=== PATIENT | female | born 1950 | race Caucasian/White ===

== ENCOUNTER 2017-07-22 08:25 | Emergency (ER) | payer BC ==
[2017-07-22 08:50] VITALS: BP 150/82
--- NOTE | 2017-07-22 09:13 | UC ---
Respiratory Complaint HPI - HPI Summary HPI Summary: c/o cough for the past 3 days, denies fever, running nose, sputum production or prodrome. States she has been on Breo and Spiriva recently, Hx of asthma on inhalers since 1991 after pneumonia, since then has recurrent bronchitis. UTD on vaccinations, NKDA. Last episode of bronchitis was 2 years ago - History of Current Complaint Chief Complaint: UCRespiratory Stated Complaint: CONGESTION ASTHMA Time Seen by Provider: 07/22/17 08:53 Hx Obtained From: Patient ?: No Onset/Duration: Sudden Onset, Lasting Days Timing: Constant Severity Initially: Moderate Severity Currently: Moderate Character: Cough: Nonproductive Aggravating Factors: Nothing Alleviating Factors: Nothing Associated Signs And Symptoms: Positive: Sinus Discomfort - Risk Factors Pulmonary Embolism Risk Factors: Negative Cardiac Risk Factors: Negative Pseudomonas Risk Factors: Negative Tuberculosis Risk Factors: Negative - Allergies/Home Medications Allergies/Adverse Reactions: Allergies Allergy/AdvReac Type Severity Reaction Status Date / Time No Known Allergies Allergy Verified 07/22/17 08:34 Home Medications: Home Medications Fluticasone Furoate-Vilanterol [Breo Ellipta 200-25 Mcg/INH] 1 inh INH DAILY [History Confirmed 07/22/17] Metformin HCl [Glucophage Xr] 1 tab PO QPM 07/22/17 [History Confirmed 07/22/17] Rabeprazole Sodium 1 tab PO DAILY 07/22/17 [History Confirmed 07/22/17] Spiriva Inhaler DEVICE* [Tiotropium Inhaler DEVICE*] 2 inhaler INH DAILY [History Confirmed 07/22/17] PMH/Surg Hx/FS Hx/Imm Hx Other History Of: Negative For: Anticoagulant Therapy - Surgical History Surgical History: Yes Surgery Procedure, Year, and Place: right knee replace - 2010. appe, tonsillectomy, tubal ligation. cataracts bilat, several arthroscopic surgeries of right knee prior to replacement - Family History Known Family History: Positive: Cardiac Disease - Social History Alcohol Use: None Substance Use Type: None Smoking Status (MU): Never Smoked Tobacco Review of Systems Respiratory: Cough All Other Systems Reviewed And Are Negative: Yes Physical Exam Triage Information Reviewed: Yes Appearance: Well-Appearing Vital Signs: Initial Vital Signs Temp 98.4 F 07/22/17 08:45 Pulse 81 07/22/17 08:45 Resp 16 07/22/17 08:45 BP 150/82 07/22/17 08:45 Pulse Ox 97 07/22/17 08:45 Vital Signs Reviewed: Yes Eye Exam: Normal ENT Exam: Normal Dental Exam: Normal Neck exam: Normal Respiratory Exam: Normal Cardiovascular Exam: Normal UC Diagnostic Evaluation - Laboratory O2 Sat by Pulse Oximetry: 97 Respiratory Course/Dx - Course Course Of Treatment: Onset of cough 3 days ago with history of recurrent bronchitis. Start biaxin 500mg po bid for 7 days, PO fluids, probiotics, continue inhalers. - Differential Dx/Diagnosis Provider Diagnoses: Bronchitis Discharge - Discharge Plan Condition: Stable Disposition: HOME
== END 2017-07-22 09:18 | disposition home or self-care (01) ==
LOC: UCEAST 08:25
DX: J40 Bronchitis, not specified as acute or chronic (principal); Z96.651 Presence of right artificial knee joint
CPT/HCPCS: 99212; G0463

== ENCOUNTER 2017-11-14 08:42 | Emergency (ER) | payer BC ==
[2017-11-14 09:07] VITALS: BP 147/79
--- NOTE | 2017-11-14 09:59 | UC ---
Hand/Wrist HPI - HPI Summary HPI Summary: puppy ruthann left pinky 4-5 weeks ago has continued pain and swelling in PIP - History Of Current Complaint Hx Obtained From: Patient ?: No Mechanism Of Injury: ruthann 5th left finger Onset/Duration: Sudden Onset, Lasting Weeks - 4-5 weeks, Still Present Severity Initially: Moderate Severity Currently: Moderate Pain Intensity: 6 Pain Scale Used: 0-10 Numeric Character Of Pain: Throbbing, Stiffness Aggravating Factor(s): Movement Alleviating Factor(s): Nothing Associated Signs And Symptoms: Positive: Swelling Related History: Dominant Hand Right <Rosi Tidwell - Last Filed: 11/14/17 10:50> <Sarah Blair - Last Filed: 11/14/17 14:17> - History Of Current Complaint Chief Complaint: UCUpperExtremity Stated Complaint: FINGER INJURY Time Seen by Provider: 11/14/17 09:57 - Allergies/Home Medications Allergies/Adverse Reactions: Allergies Allergy/AdvReac Type Severity Reaction Status Date / Time No Known Allergies Allergy Verified 11/01/17 07:25 Home Medications: Home Medications Mometasone/Formoter 200/5 MDI* [Dulera 200/5 MDI*] 11/14/17 [History] Montelukast Sodium TAB* [Singulair 10 MG TAB*] 10 mg PO DAILY 11/14/17 [History Confirmed 11/14/17] Triamcinolone NASAL SPRAY* [Nasacort Aq Nasal [place]*] 1 spray INH DAILY [History Confirmed 11/14/17] PMH/Surg Hx/FS Hx/Imm Hx Previously Healthy: No Endocrine History: Diabetes Cardiovascular History: Hypertension Respiratory History: Asthma Neurological History: Migraine Other History Of: Negative For: Anticoagulant Therapy - Surgical History Surgical History: Yes Surgery Procedure, Year, and Place: right knee replace - 2010. appe, tonsillectomy, tubal ligation. cataracts bilat, several arthroscopic surgeries of right knee prior to replacement - Family History Known Family History: Positive: Cardiac Disease - Social History Occupation: Retired Lives: With Family Alcohol Use: None Substance Use Type: None Smoking Status (MU): Never Smoked Tobacco <Rosi Tidwell - Last Filed: 11/14/17 10:50> Review of Systems Constitutional: Negative Skin: Negative Eyes: Negative ENT: Negative Respiratory: Negative Cardiovascular: Negative Gastrointestinal: Negative Genitourinary: Negative Motor: Negative Neurovascular: Negative Musculoskeletal: Arthralgia - mid left 5th finger, Edema - mid left 5th finger Neurological: Negative Psychological: Negative Is Patient Immunocompromised?: No All Other Systems Reviewed And Are Negative: Yes <Rosi Tidwell - Last Filed: 11/14/17 10:50> Physical Exam Triage Information Reviewed: Yes Appearance: Well-Appearing, No Pain Distress, Well-Nourished Vital Signs: Initial Vital Signs Temp 97.8 F 11/14/17 09:01 Pulse 88 11/14/17 09:01 Resp 16 11/14/17 09:01 BP 147/79 11/14/17 09:01 Pulse Ox 98 11/14/17 09:01 Vital Signs Reviewed: Yes Eye Exam: Normal Eyes: Positive: Conjunctiva Clear ENT Exam: Normal ENT: Positive: Normal ENT inspection, Hearing grossly normal. Negative: Nasal congestion, Muffled voice, Hoarse voice, Dental tenderness, Sinus tenderness Dental Exam: Normal Neck exam: Normal Neck: Positive: Supple, Nontender Respiratory Exam: Normal Respiratory: Positive: No respiratory distress, No accessory muscle use Cardiovascular Exam: Normal Cardiovascular: Positive: Pulses Normal, Brisk Capillary Refill Musculoskeletal Exam: Other Musculoskeletal: Positive: Strength Intact, ROM Intact, Edema @ - left 5th finger Neurological Exam: Normal Neurological: Positive: Alert, Muscle Tone Normal Psychological Exam: Normal Skin Exam: Normal <Rosi Tidwell - Last Filed: 11/14/17 10:50> Vital Signs: Initial Vital Signs Temp 97.8 F 11/14/17 09:01 Pulse 88 11/14/17 09:01 Resp 16 11/14/17 09:01 BP 147/79 11/14/17 09:01 Pulse Ox 98 11/14/17 09:01 <Sarah Blair - Last Filed: 11/14/17 14:17> Diagnostics - Radiology No standard instances Xray Interpretation: No Acute Changes Radiology Interpretation Completed By: ED Physician, Radiologist <Rosi Tidwell - Last Filed: 11/14/17 10:50> Re-Evaluation - Re-Evaluation First Eval Change: Unchanged <Rosi Tidwell - Last Filed: 11/14/17 10:50> Hand/Wrist Course/Dx - Course Course Of Treatment: tyelnol ibuprofen finger splint, follow with bp and finger with pcp - Differential Dx/Diagnosis Provider Diagnoses: hypertension in poor control, left 5th finger sprain <Rosi Tidwell - Last Filed: 11/14/17 10:50> Discharge <Rosi Tidwell - Last Filed: 11/14/17 10:50> <Sarah Blair - Last Filed: 11/14/17 14:17> - Discharge Plan Condition: Stable Disposition: HOME Patient Education Materials: Acetaminophen (By mouth), Ibuprofen (By mouth), Jammed Finger (ED), Hypertension (ED) Referrals: Lokesh Liu MD [Primary Care Provider] - 1 Week Attestation Statement User Type: Provider - I was available for consult. This patient was seen by the CHRIS. The patient was not presented to, seen by, or examined by me. Daniel <Sarah Blair - Last Filed: 11/14/17 14:17>
--- NOTE | 2017-11-14 10:35 | RAD ---
Indication: Left hand injury. 2 views of left hand demonstrates no definite fracture or dislocation. No other bone or joint abnormality is noted. IMPRESSION: No fracture of the left hand is noted.
== END 2017-11-14 10:52 | disposition home or self-care (01) ==
LOC: UCEAST 08:42
DX: S63.617A Unspecified sprain of left little finger, initial encounter (principal); W23.0XXA Caught, crushed, jammed, or pinched between moving objects, initial encounter; Y93.9 Activity, unspecified; Y92.9 Unspecified place or not applicable; I10 Essential (primary) hypertension; E11.9 Type 2 diabetes mellitus without complications; J45.909 Unspecified asthma, uncomplicated; G43.909 Migraine, unspecified, not intractable, without status migrainosus; Z96.651 Presence of right artificial knee joint; Z98.42 Cataract extraction status, left eye; Z98.41 Cataract extraction status, right eye
CPT/HCPCS: 99212; G0463

== ENCOUNTER 2018-01-28 16:11 | Observation (INO) | payer MEDICARE, BC ==
[2018-01-28] MEDS ORDERED: Ondansetron ODT TAB* 4 MG PO ONE (17:12)
[2018-01-28] MEDS ORDERED: Morphine VIAL* 4 MG/ML VIAL (1 ml vial) IV ONE ×2 (17:13→18:40)
--- NOTE | 2018-01-28 17:36 | ED ---
Lower Extremity - HPI Summary HPI Summary: Patient is a 67-year-old female who presents emergency department for a right lower leg injury that occurred just prior to arrival. Patient states she has 2 large dogs in the ran into the side of her right mid leg and she fell to the ground. No head injury or loss of consciousness. Is not anticoagulated. Pain is located mostly to right knee. History of the replacement in 2010. Denies numbness, tingling or weakness. No other injuries were sustained. Symptoms are moderate in severity. Walking and touching leg makes symptoms worse. Nothing makes symptoms better. - History of Current Complaint Chief Complaint: EDExtremityLower Stated Complaint: RT LEG INJURY Time Seen by Provider: 01/28/18 17:02 Hx Obtained From: Patient Pain Intensity: 7 - Allergies/Home Medications Allergies/Adverse Reactions: Allergies Allergy/AdvReac Type Severity Reaction Status Date / Time No Known Allergies Allergy Verified 11/01/17 07:25 Home Medications: Home Medications Calcium Carbonate/Vitamin D3 [Calcium 600-Vit D3 800 Caplet] 1 each PO BID 01/28 [History Confirmed 01/28/18] Diclofenac Sodium EC TAB* [Voltaren EC TAB*] 50 mg PO TID 01/28/18 [History Confirmed 01/28/18] Glucosamine CAP (NF) 1,000 cap PO BID 01/28/18 [History Confirmed 01/28/18] Lovastatin(NF) [Mevacor(NF)] 20 mg PO QPM 01/28/18 [History Confirmed 01/28/18] Mometasone/Formoter 200/5 MDI* [Dulera 200/5 MDI*] 2 puff INH BID 01/28/18 [ History Confirmed 01/28/18] Montelukast Sodium TAB* [Singulair TAB*] 10 mg PO QPM 01/28/18 [History Confirmed 01/28/18] NIFEdipine ER TAB* [Procardia Xl TAB*] 60 mg PO QPM 01/28/18 [History Confirmed 01/28/18] Rabeprazole (NF) [Aciphex (NF)] 20 mg PO QAM 01/28/18 [History Confirmed ] Triamcinolone NASAL SPRAY* [Nasacort AQ Nasal [place]*] 2 puff BOTH NARES QAM 04/10 [History Confirmed 01/28/18] metFORMIN* [Glucophage 500 MG TAB *] 750 mg PO QPM 01/28/18 [History Confirmed 01/28/18] PMH/Surg Hx/FS Hx/Imm Hx Previously Healthy: Yes Endocrine/Hematology History: Reports: Hx Diabetes Denies: Hx Anticoagulant Therapy, Hx Thyroid Disease Cardiovascular History: Denies: Hx Hypertension, Hx Pacemaker/ICD Respiratory History: Reports: Hx Asthma Denies: Hx Chronic Obstructive Pulmonary Disease (COPD) History: Denies: Hx Renal Disease Musculoskeletal History: Denies: Hx Osteoporosis Neurological History: Denies: Hx Dementia, Hx Seizures Psychiatric History: Denies: Hx Substance Abuse - Cancer History Hx Chemotherapy: No Hx Radiation Therapy: No - Surgical History Surgery Procedure, Year, and Place: right knee replace - 2010. appe, tonsillectomy, tubal ligation. cataracts bilat, several arthroscopic surgeries of right knee prior to replacement Infectious Disease History: No Infectious Disease History: Denies: Hx Clostridium Difficile, Hx Hepatitis, Hx Human Immunodeficiency Virus (HIV), Hx of Known/Suspected MRSA, Hx Shingles, Hx Tuberculosis, Hx Known/ Suspected VRE, Hx Known/Suspected VRSA, History Other Infectious Disease, Traveled Outside the [place] in Last 30 Days - Family History Known Family History: Positive: Cardiac Disease - Social History Occupation: Retired Lives: With Family Alcohol Use: None Substance Use Type: Reports: None Hx Tobacco Use: No Smoking Status (MU): Never Smoked Tobacco Review of Systems Positive: Other - Right knee pain and swelling Negative: Weakness, Paresthesia, Numbness Psychological: Normal All Other Systems Reviewed And Are Negative: Yes Physical Exam Triage Information Reviewed: Yes Vital Signs On Initial Exam: Initial Vitals Temp Pulse Resp BP Pulse Ox 97.6 F 88 14 145/90 100 01/28/18 16:14 01/28/18 16:14 01/28/18 16:14 01/28/18 16:14 01/28/18 16:14 Vital Signs Reviewed: Yes Appearance: Positive: Pain Distress - Pt. is lying on gurney in no acute distress. present. Skin: Positive: Warm, Dry Head/Face: Positive: Normal Head/Face Inspection Eyes: Positive: Normal, JAYCOB Neck: Positive: Supple Musculoskeletal: Positive: Other - Marked edema noted to the right knee with significant pain on palpation. Exam is limited secondary to edema and pain. Good palpable pedal pulse. No proximal or distal injuries. No wounds. Neurological: Positive: Normal, CN Intact II-III Diagnostics - Vital Signs Vital Signs Temp Pulse Resp BP Pulse Ox 01/28/18 17:28 16 01/28/18 16:14 97.6 F 88 14 145/90 100 - Laboratory Result Diagrams: 01/28/18 20:59 01/28/18 20:59 Lab Statement: Any lab studies that have been ordered have been reviewed, and results considered in the medical decision making process. Lower Extremity Course/Dx - Course Course Of Treatment: He should presenting with probable right lower leg fracture after a fall. IV and IV morphine for ordered. Pending x-rays. X- rays show a nondisplaced proximal tib-fib fracture. Orthopedics was consulted, Dr. James, examined patient emergency department. Plans to take patient to the OR tonight for external fixation. - Diagnoses Differential Diagnosis/HQI/PQRI: Positive: Fracture (Closed), Sprain, Strain Provider Diagnoses: Tibia/fibula fracture Discharge - Sign-Out/Discharge Documenting (check all that apply): Discharge/Admit/Transfer - Discharge Plan Condition: Good Disposition: ADMITTED TO [facility] - Billing Disposition and Condition Condition: GOOD Disposition: [facility] [place]
--- NOTE | 2018-01-28 18:31 | RAD ---
INDICATION: Right leg injury after "2 dog ran into patient's legs" COMPARISON: None TECHNIQUE: 2 views of the right knee and 2 views of the right leg were obtained. FINDINGS: The patient's right knee prosthesis appears to be anatomically aligned. There is no fracture or directly abutting the prostheses. There are minimally displaced fractures through the proximal tibia and fibular metaphyses exhibiting approximately 12 degrees of valgus deformity. Fracture of the fibula is minimally comminuted. IMPRESSION: Displaced fracture involving the proximal metaphyses of the right tibia and fibula. The right knee prosthesis appears to be otherwise anatomically aligned.
--- NOTE | 2018-01-28 18:32 | RAD ---
INDICATION: Right leg pain after trauma COMPARISON: Chest x-ray dated October 09, 2017 TECHNIQUE: Single AP view of the chest was obtained. FINDINGS: The heart and mediastinum exhibit normal size and contour. The lungs are grossly clear. There is no evidence of a large pleural effusion. Visualized bones are normal for the patient's age. IMPRESSION: No radiographic evidence for acute cardiopulmonary abnormality on this single AP view chest x-ray.
[2018-01-28] MEDS ORDERED: Dextrose 50% Syringe 50 ML* 25 GM/50 ML SYRINGE IV PUSH PRN (20:47)
[2018-01-28] MEDS ORDERED: Levalbuterol 1.25MG/0.5ML NEB INH PRN (20:48)
[2018-01-28] MEDS ORDERED: ceFAZolin 2 GM PREMIX (*) 2 GM/50 ML BAG IVPB ONE (21:12)
[2018-01-28 21:13] LABS: ABS Basophils 0 10^3/ul (0-0.2); ABS Eosinophils 0.1 10^3/ul (0-0.6); ABS Lymphocytes 2.1 10^3/ul (1.0-4.8); ABS Monocytes 1.2 10^3/ul (0-0.8); ABS Neutrophils 9.2 10^3/ul (1.5-7.7); ABS Nucleated RBC 0 10^3/ul; Eosinophil % 0.7 % (0-6); Hematocrit 33 % (35-47); Hemoglobin 11.1 g/dl (12.0-16.0); Lymphocyte % 16.7 % (25-47); Mean Corpuscular HGB Conc 33 g/dl (31-36); Mean Corpuscular Hemoglobin 31 pg (27-31); Mean Corpuscular Volume 93 fL (80-97); Nucleated Red Blood Cells % 0; Platelet Count 204 10^3/ul (150-450); Red Blood Count 3.57 10^6/ul (4.0-5.4); Red Cell Distribution Width 14 % (10.5-15); White Blood Count 12.8 10^3/ul (3.5-10.8)
[2018-01-28 21:30] LABS: EGFR Non-African American 85.4 (>60)
[2018-01-28 21:32] LABS: INR 1.02 (0.77-1.02)
[2018-01-28] MEDS ORDERED: Bupivacaine 0.5%* 50 ML VIAL ONE (21:37)
[2018-01-28] MEDS ORDERED: fentaNYL* 50 MCG/ML 2 ML VIAL (100 MCG VIAL) ONE ×2 (21:47→23:11)
[2018-01-28] MEDS ORDERED: Midazolam* 1 MG/ML 2 ML VIAL (2 MG) ONE (21:48)
--- NOTE | 2018-01-28 22:11 | CONSULT ---
Consult Consult: I dictated a complete consult note earlier which is waiting for veterinary assistant. R proximal tibia fibula fractures, displaced, periprosthetic, unstable. Plan: To the OR for external fixator spanning the right knee. Post-op admission for pain control, PT. Tentative plan for ORIF on 02/06/18.
[2018-01-28] MEDS ORDERED: Levalbuterol 0.63MG/3ML NEB* UNIT OF USE INH ONE (22:16)
[2018-01-28] MEDS ORDERED: Dexamethasone IV* 4 MG/ML 1 ML (4 MG) ONE (22:18)
[2018-01-28] MEDS ORDERED: Ondansetron INJ* 2 MG/ML VIAL ONE (22:18)
[2018-01-28] MEDS ORDERED: Scopolamine 1.5 mg* PATCH ONE (22:18)
[2018-01-28] MEDS ORDERED: Rocuronium* 10 MG/ML VIAL ONE (22:41)
[2018-01-28] MEDS ORDERED: Glycopyrrolate IV* 0.2 MG/ML 1 ML VIAL ONE (23:26)
[2018-01-28] MEDS ORDERED: Neostigmine Methylsulfate* 1 MG/ML 10 ML VIAL (1 mg/ml) ONE (23:26)
[2018-01-28] MEDS ORDERED: Ondansetron INJ* 2 MG/ML VIAL IV PRN (23:34)
[2018-01-28] MEDS ORDERED: Acetaminophen IV 1GM/100ML * 1,000 MG/100 ML VIAL IVPB ONE (23:34)
[2018-01-28] MEDS ORDERED: oxyCODONE TAB* 5 MG TAB PO PRN (23:34)
[2018-01-28] MEDS ORDERED: PROCHLORPERAZINE INJ 5 MG/ML 2 ML VIAL IV PRN (23:34)
[2018-01-28] MEDS ORDERED: oxyCODONE/Acetamin 5/325 MG* TAB PO PRN (23:34)
[2018-01-28] MEDS ORDERED: Levalbuterol 0.63MG/3ML NEB* UNIT OF USE INH PRN (23:34)
[2018-01-28] MEDS ORDERED: Naloxone* 0.4 MG/ML 1 ML VIAL IV PRN (23:34)
[2018-01-28] MEDS ORDERED: HYDROmorphone INJ* 1 MG/ML CARPUJECT SYRINGE ONE (23:53)
[2018-01-29] MEDS ORDERED: Midazolam* 1 MG/ML 2 ML VIAL (2 MG) ONE (00:03)
[2018-01-29] MEDS ORDERED: Acetaminophen IV 1GM/100ML * 100 ML ONE (00:15)
[2018-01-29] MEDS ORDERED: diPHENhydraMINE IV* 50 MG/ML 1 ml VIAL (BENADRYL) IV PRN (00:18)
[2018-01-29] MEDS ORDERED: Acetaminophen TAB* 325 MG PO PRN (00:18)
[2018-01-29] MEDS ORDERED: HYDROmorphone INJ* 2 MG/ML CARPUJECT SYRINGE ONE (00:29)
[2018-01-29] MEDS: HYDROmorphone INJ* 1 MG/ML CARPUJECT SYRINGE IV PRN ×2 (00:30→00:39)
[2018-01-29] MEDS ORDERED: NS 0.9% 1000 ML* 1,000 ML IV SCH (00:30)
[2018-01-29] MEDS ORDERED: fentaNYL* 50 MCG/ML 2 ML VIAL (100 MCG VIAL) ONE (00:45)
[2018-01-29] MEDS: fentaNYL* 50 MCG/ML 2 ML VIAL (100 MCG VIAL) IV PRN ×2 (00:46→01:19)
[2018-01-29] MEDS: Montelukast Sodium TAB* 10 MG PO SCH ×2 (02:17→22:03)
[2018-01-29] MEDS: Mometasone/Formoter 200/5 MDI INH SCH ×3 (02:18→20:03)
[2018-01-29] MEDS: oxyCODONE/Acetamin 5/325 MG* TAB PO PRN ×6 (03:29→22:02)
--- NOTE | 2018-01-29 05:58 | CONS ---
CC: Lokesh Liu MD CONSULTATION REPORT: DATE OF CONSULTATION: 01/28/18 TIME OF EVALUATION: 1999. PRIMARY CARE PHYSICIAN: Lokesh Liu MD PHYSICIAN REQUESTING CONSULTATION: Dr. James. REASON FOR CONSULTATION: Medical management. HISTORY OF PRESENT ILLNESS: This is a 67-year-old female with a past medical history of arthritis, bilateral knee replacements, and diabetes with asthma, who presents to the emergency room after falling when her 2 large dogs ran into her and she fell. She suffered a displaced fracture of her proximal tib- fibula. She is planning to go to the OR this evening with Dr. James to have an external fixator placed and a Medicine consult was requested for management of her comorbidities and clearance. The patient states she has been struggling with her asthma, worse over the past year with shortness of breath. She is working with an supervisor motor vehicle assembly and industrial therapist and is waiting for approval of a new inhaler. She says her shortness of breath comes and goes. She has never required oxygen, the last time she has needed prednisone was back in July. She does walk her dogs 1 mile every morning. She does get short of breath, but she does take it easy and then she walks several times throughout the day, a total of 3 miles a day. She denies any chest pain. She has no history of cardiac issues. She has seen Dr. Holt for a family history, but has had an unremarkable workup with him. In the emergency room, the patient had labs, imaging. She was given morphine, Zofran, is as mentioned going to the operating room this evening. PAST MEDICAL HISTORY: 1. Diabetes. 2. Asthma. 3. GERD. 4. Hypercholesterolemia. 5. History of bilateral knee replacements, the right one in April 2011, left in October 2013. 6. History of migraines, for which she takes nifedipine. 7. Arthritis. 8. History of appendectomy. 9. History of tonsillectomy and adenoidectomy. MEDICATIONS: 1. Nifedipine 6 mg daily in the evening. 2. Diclofenac 50 mg 3 times a day. 3. Metformin 750 mg in the evening. 4. AcipHex 20 mg daily in the morning. 5. Lovastatin 20 mg daily in the evening. 6. Glucosamine 1000 mg p.o. b.i.d. 7. Dulera 200/25, 2 inhalations b.i.d. 8. Singulair 10 mg daily. 9. Nasacort 55 mcg 2 sprays each nostril once a day. 10. Calcium with vitamin D3, 1 tab b.i.d. 11. Aspirin 81 mg daily. 12. Multivitamin daily. 13. Xopenex inhaler twice a day as needed. 14. Fiorinal as needed. ALLERGIES: No known drug allergies. FAMILY HISTORY: Her father at age 72 from congestive heart failure and mother from diabetes and renal failure. SOCIAL HISTORY: The patient lives at home with her . She is a retired payroll secretary. No history of tobacco, alcohol, or illicit drug use. Her healthcare proxy is her , Jack Macias, and her daughter, Jazz Blari. Code status is full code. REVIEW OF SYSTEMS: A 14-point review of systems as mentioned in the HPI. PHYSICAL EXAM: Vital Signs: Temperature 98.4, pulse rate 88, respiratory rate 14, oxygen saturation 100% on room air, blood pressure 145/90. General: No acute distress with her daughter at the bedside. HEENT: Head normocephalic. Pupils equal and reactive. Anicteric. Oropharynx, mucous membranes moist. Neck: Supple. No lymphadenopathy. Cardiac: Regular rate and rhythm. Soft systolic murmur heard throughout. Respiratory: Clear to auscultation. No wheezes, rhonchi, rales. No increased work of breathing. Good air movement. Abdomen: Soft, nontender, nondistended. Extremities: The patient with a large Joe wrap of her right lower extremity. Cap refill less than 2. Extremities are warm. Neurologic: Alert and oriented x3. No gross focal neurologic deficits. LABORATORY DATA: There is not any laboratory data. RADIOGRAPHIC DATA: Knee x-ray shows displaced fracture involving the proximal metaphysis of the right tibia and fibula. The right knee appears to be otherwise anatomically aligned. Lower extremity x-ray, displaced fracture involving the proximal metaphysis of the right tibia and fibula. Chest x-ray, no radiographic evidence for acute cardiopulmonary abnormality in the single AP view chest x-ray. ASSESSMENT: This is a 67-year-old female with past medical history of asthma and diabetes, presented to the emergency room after having fallen and suffered a right tib-fib proximal fracture, planning to go to the OR this evening for an external fixator. Right tib-fib proximal fracture. There is no contraindication to proceeding with surgery. Her RCRI index is 0. She does have issues with asthma and I think breathing control will be important including incentive spirometer, which I have included. I have resumed her home inhaler regimen as well. Her chest x- ray is unremarkable on admission. I will order baseline screening labs including coags and check an EKG as well. CHRONIC MEDICAL PROBLEMS: 1. Diabetes. We will place her on a lispro sliding scale. 2. Asthma. As mentioned, we will do the incentive spirometer. Continue the Xopenex and the Dulera and the Singulair. 3. Gastroesophageal reflux disease. We do not have Aciphex on formulary. We will also continue her on omeprazole. Continue her on aspirin daily. 4. Prevention of migraines, nifedipine, we will resume that tomorrow evening. 5. DVT prophylaxis, will defer to Surgery for management. 6. Code status: Full code. TIME SPENT: Greater than 45 minutes spent doing the consultation, more than half the time in direct patient contact. [id number]/CPS #: [id number] MTDD
[2018-01-29] MEDS ORDERED: Heparin VIAL(*) 5000 UNITS/ML VIAL (FIVE THOUSAND) SUBCUT SCH (06:00)
[2018-01-29] MEDS: ceFAZolin 1 GM in Dextrose (*) 1 GM/50 ML BAG IVPB SCH ×3 (06:15→22:07)
[2018-01-29] MEDS: Omeprazole CAP* 20 MG PO SCH (06:17)
[2018-01-29] MEDS: Enoxaparin(*) 40 MG/0.4 ML SYR SUBCUT SCH (07:46)
--- NOTE | 2018-01-29 08:11 | RAD ---
INDICATION: Traumatic fractures of the right tibia and fibula, reduction. COMPARISON: Comparison is made with a prior x-ray study of the right knee from January 28, 2018. TECHNIQUE: 30.6 seconds of intermittent fluoroscopic guidance were provided and 10 spot films of the right femur and right lower leg were obtained in the operating room. FINDINGS: The films again demonstrate comminuted fractures of the proximal fibula and tibia. The fracture of the proximal tibia is located several centimeters below the distal stem of a tibial prosthesis. Subsequently there is placement of an external fixator in the femur and tibia the bones appear improved alignment and positioning. IMPRESSION: INTRAOPERATIVE CONTROL FILMS. CPT II Codes: G9500
[2018-01-29] MEDS: Fluticasone NASAL SPRAY 50MCG* 16 gm SPRAY BTL BOTH NARES SCH (09:58)
[2018-01-29] MEDS: Insulin LISPRO* 1 UNITS UNIT SUBCUT SCH ×3 (09:59→18:46)
--- NOTE | 2018-01-29 10:28 | HP ---
HISTORY & PHYSICAL: DATE OF CONSULTATION: 01/28/18 REASON FOR ADMISSION: Right proximal tibia-fibula shaft fractures. HISTORY OF PRESENT ILLNESS: The patient is a 67-year-old woman, with a history of multiple prior knee surgeries including a right total knee arthroplasty, performed by Dr. Tolbert at [facility] in 2010, who presents to [facility] Emergency Department today after a fall at home after her 2 large dogs bumped into her right leg and she fell over. The patient reports multiple prior histories of the right knee, surgery starting in 1965. In 1965, she had a removal, open of meniscus. In 1974, she had another removal, meniscectomy, open of meniscus right knee. The patient then had a ligamentous reconstruction of the right knee in 1979. The patient is unsure exactly what ligament was reconstructed, but she described instability prior to that procedure. She had arthroscopic debridements of the right knee in 1981 and 1998. She then underwent a right total knee arthroplasty in 2010. The patient at baseline has no right knee pain and goes for long walks with her who has congestive heart failure. The patient reports a thorough workup by Dr. Holt, machine pan greaser, in September 2016, for a fainting spell but that the workup returned no exact diagnosis and cause of that fainting. The patient describes a significant pain about the right knee. The patient acknowledged that she has had some decreased sensation about the right knee after multiple prior surgeries. The patient's last food or drink today was at 11 a.m. She has been nothing by mouth since then. PAST MEDICAL HISTORY: Asthma, migraine headaches, diabetes mellitus, reflux esophagitis. PAST SURGICAL HISTORY: Appendectomy, tonsillectomy, tubal ligation, left breast biopsy, multiple colonoscopies, cataract surgeries bilateral eyes, left knee partial medial meniscectomy arthroscopic, left total knee arthroplasty in 2013, hearing aid placement, multiple right knee surgeries as described above. MEDICATIONS: 1. Nifedipine. 2. Diclofenac. 3. Metformin. 4. Rabeprazole (AcipHex). 5. Lovastatin. 6. Magnesium. 7. Glucosamine. 8. Dulera inhaler. 9. Singulair. 10. Nasacort. 11. Calcium. 12. Aspirin 81 mg p.o. daily. 13. Multivitamin. ALLERGIES: No known drug allergies. SOCIAL HISTORY: The patient is retired. Lives with her . Walks at baseline without assist device and without knee pain. Likes to walk for exercise. Has a daughter who lives in the area. Lives with 2 large dogs. REVIEW OF SYSTEMS: No head trauma or loss of consciousness. No shortness of breath, chest palpitations or chest pain. No abdominal pain. No other joint pain. The patient does describe chronic decreased sensation about the anterior aspect of the right knee and has pain about the right lower leg. PHYSICAL EXAM: At 4:14 p.m. in the emergency department, the patient had a temperature of 97.6 degrees Fahrenheit, heart rate of 88, blood pressure 145/90 , respiratory rate of 14, and oxygen saturation of 100% on room air. In no acute distress, alert and oriented, appropriate mood and affect, appropriate dress and hygiene, well-coordinated bilateral upper and left lower extremities. Right knee exam has multiple surgical scars about it. One is clearly a lateral approach to the knee. One is a midline anterior longitudinal knee scar. There are several other medial and lateral surgical incision scars. The patient has some decreased sensation about the anterior aspect of the knee, but intact motor , dorsiflexion, plantar flexion, ankle and extension and flexion toes as well as full sensation about the lower leg, ankle and foot. The patient has significant ecchymosis and swelling about the lower leg, more proximal than the distal. She does not clearly wrinkle. Cap refill less than 2 seconds in toes of the right foot. IMAGING: I reviewed x-rays of the right knee and lower leg obtained in the emergency room at [facility]. There appears to be a total knee arthroplasty implant, in place without clear loosening. There is a non-comminuted fracture, transverse or short oblique, of the proximal tibial shaft, proximally 4 cm distal to the distal most stem of the tibial component. The tibia has anterior apex angulation of 5 degrees and valgus of 10 to 11 degrees angulation. There is also a fibula fracture at about the same level with the anterior apex angulation of 8 degrees and valgus of 5 degrees. ASSESSMENT: 1. Right proximal tibia-fibula fractures, displaced, periprosthetic. 2. History of multiple prior knee surgeries, culminating in a right total knee arthroplasty in 2010 by an outside surgeon. PLAN: 1. At first, I considered placing the patient in a long leg splint. However, given the amount of displacement and the patient's level of discomfort, I think that an external fixator, spanning the knee joint, make sense for patient comfort and to minimize soft tissue swelling. While unlikely, given the patient 's history of multiple prior surgeries, this could potentially even be definitive care. The patient asked about this scenario. It is unlikely, but I would consider it among multiple options. 2. I do not think open reduction and internal fixation tonight would make sense given the patient's significant soft tissue swelling and ecchymosis about the lower leg already. 3. The patient has been n.p.o. for now 9 hours and so is appropriate for the operating room this evening. 4. We will get the hospitalist service to see the patient, optimize and clear her for surgery. 5. The patient will continue n.p.o. 6. I placed a long leg splint, posterior component from thigh to foot and sugar tong splint from thigh to foot, overwrapped with Joe bandages. 7. The patient will go to the operating room for external fixator placement spanning the right knee. We will close reduce the fracture and then place the external fixator. 8. Given the late hour, I anticipate that the patient will be admitted postoperatively. The patient feels comfortable that she will be able to return to home. She lives in a mobile home. So, I think that it is most likely that the patient will go home tomorrow and then return to see me in clinic with possible definitive open reduction and internal fixation surgery for 02/06/18. The patient will need admission for pain control, functional support with physical therapy and wound care and wound care instruction. [id number]/[facility] #: [id number] JAYSON
[2018-01-29 12:41] LABS: Hematocrit 31 % (35-47); Hemoglobin 10.3 g/dl (12.0-16.0)
--- NOTE | 2018-01-29 12:50 | PN ---
Progress Note - Progress Note Date of Service: 01/29/18 SOAP: Subjective: []Patient seen at bedside. She is feeling well without chest pain, shortness of breath, dizziness, feeling of fever, chills, nausea. Her RLE is painful but tolerable. She desires DC and has confirmed with her insurance company that a hospital bed will be covered by insurance. Objective: [] Vital Signs Temp 98.3 F 01/29/18 07:16 Pulse 100 01/29/18 07:16 Resp 16 01/29/18 12:24 BP 135/75 01/29/18 07:16 Pulse Ox 99 01/29/18 08:00 Intake & Output 01/28/18 01/29/18 01/29/18 18:59 06:59 18:59 Intake Total 410 280 Output Total 0 650 Balance 410 -370 Weight 207 lb 207 lb Intake: IV Fluids 50 55 ABX - CEFAZOLIN 55 NS 100ML, Cefazolin 2G 50 Oral 360 225 Output: Urine 0 650 Other: Estimated Void Large # Voids 2 Laboratory Last Values WBC 12.8 10^3/ul (3.5-10.8) H 01/28/18 20:59 RBC 3.57 10^6/ul (4.0-5.4) L 01/28/18 20:59 Hgb 10.3 g/dl (12.0-16.0) L 01/29/18 12:28 Hct 31 % (35-47) L 01/29/18 12:28 MCV 93 fL (80-97) 01/28/18 20:59 MCH 31 pg (27-31) 01/28/18 20:59 MCHC 33 g/dl (31-36) 01/28/18 20:59 RDW 14 % (10.5-15) 01/28/18 20:59 Plt Count 204 10^3/ul (150-450) 01/28/18 20:59 MPV 8.0 um3 (7.4-10.4) 01/28/18 20:59 Neut % (Auto) 72.5 % (38-83) 01/28/18 20:59 Lymph % (Auto) 16.7 % (25-47) L 01/28/18 20:59 [place] % (Auto) 9.7 % (0-7) H 01/28/18 20:59 Eos % (Auto) 0.7 % (0-6) 01/28/18 20:59 Baso % (Auto) 0.4 % (0-2) 01/28/18 20:59 Absolute Neuts (auto) 9.2 10^3/ul (1.5-7.7) H 01/28/18 20:59 Absolute Lymphs (auto) 2.1 10^3/ul (1.0-4.8) 01/28/18 20:59 Absolute Monos (auto) 1.2 10^3/ul (0-0.8) H 01/28/18 20:59 Absolute Eos (auto) 0.1 10^3/ul (0-0.6) 01/28/18 20:59 Absolute Basos (auto) 0 10^3/ul (0-0.2) 01/28/18 20:59 Absolute Nucleated RBC 0 10^3/ul 01/28/18 20:59 Nucleated RBC % 0 01/28/18 20:59 INR (Anticoag Therapy) 1.02 (0.77-1.02) 01/28/18 20:59 APTT 28.2 seconds (26.0-36.3) 01/28/18 20:59 Sodium 140 mmol/L (139-145) 01/28/18 20:59 Potassium 4.0 mmol/L (3.5-5.0) 01/28/18 20:59 Chloride 109 mmol/L (101-111) 01/28/18 20:59 Carbon Dioxide 24 mmol/L (22-32) 01/28/18 20:59 Anion Gap 7 mmol/L (2-11) 01/28/18 20:59 BUN 23 mg/dL (6-24) 01/28/18 20:59 Creatinine 0.69 mg/dL (0.51-0.95) 01/28/18 20:59 Est GFR ( Amer) 109.8 (>60) 01/28/18 20:59 Est GFR (Non-Af Amer) 85.4 (>60) 01/28/18 20:59 BUN/Creatinine Ratio 33.3 (8-20) H 01/28/18 20:59 Glucose 136 mg/dL (70-100) H 01/28/18 20:59 POC Glucose (mg/dL) 162 mg/dL (70-100) H 01/29/18 12:17 Calcium 9.1 mg/dL (8.6-10.3) 01/28/18 20:59 Total Bilirubin 0.30 mg/dL (0.2-1.0) 01/28/18 20:59 AST 20 U/L (13-39) 01/28/18 20:59 ALT 19 U/L (7-52) 01/28/18 20:59 Alkaline Phosphatase 74 U/L (34-104) 01/28/18 20:59 Total Protein 6.1 g/dL (6.4-8.9) L 01/28/18 20:59 Albumin 3.8 g/dL (3.2-5.2) 01/28/18 20:59 Globulin 2.3 g/dL (2-4) 01/28/18 20:59 Albumin/Globulin Ratio 1.7 (1-3) 01/28/18 20:59 Blood Type A Positive 01/28/18 20:59 Antibody Screen Negative 01/28/18 20:59 General: Well appearing, NAD RLE: Exfix in place, spanning knee. Ecchymosis of medial and anterior lower leg , tender, not hot, indurated or fluctuant. Pin sites clean, dry, without erythema or discharge. Pin sites x 4 cleaned with peroxide/ saline mix, dressed with betadine soaked 4x4s, 4x4s and gómez wraps. DF/PF intact, able to wiggle toes , sensation intact distally. DP pulse 2+, capillary refill less than two seconds distally. Thigh and calf are soft and supple without erythema or palpable cords. 1+ edema of RLE. Assessment: []Right tib/fib fractures now POD 1 sp exfix RLE spanning knee Plan: []Prior to discharge requires hospital bed Pin care: daily 1:1 ratio peroxide, saline wash. Betadine soaked 4x4 around each pin, 4x4s, wrap with gómez Lovenox 40 mg SQ daily x 30 days, requires teaching prior to discharge NWB, no ROM RLE Elevate RLE above heart, ice FU Dr James early next week
--- NOTE | 2018-01-29 17:27 | PN ---
Subjective Date of Service: 01/29/18 Interval History: Mrs. Macias has been doing well. Denies any complaints today. She had her external fixation of right tib/fib fracture last night. Reports minimal discomfort, taking pain meds and feels comfortable. Denies chest pain, palpitations, dyspnea or SOB. She wishes to go home today, however, she would like a hospital bed at home which needed to be ordered and will be delivered to her house by tomorrow. She is planning to stay here tonight, has no new complaints. Family History: Unchanged from Admission Social History: Unchanged from Admission Past Medical History: Unchanged from Admission Objective Active Medications: Acetaminophen (Tylenol Tab*) 650 mg PO Q6H PRN PRN Reason: FEVER Dextrose (D50w Syringe 50 Ml*) 12.5 gm IV PUSH .FOR FS < 60 - SS PRN PRN Reason: FS < 60 Diphenhydramine HCl (Benadryl Iv*) 12.5 mg IV Q6H PRN PRN Reason: PRURITIS Enoxaparin Sodium (Lovenox(*)) 40 mg SUBCUT Q24H [facility] Last Admin: 01/29/18 07:46 Dose: 40 mg Fluticasone Propionate (Flonase Nasal [place] 50mcg*) 2 spray BOTH NARES DAILY [facility] Last Admin: 01/29/18 09:58 Dose: 2 spray Sodium Chloride (Ns 0.9% 1000 Ml*) 1,000 mls @ 100 mls/hr IV PER RATE [facility] Last Admin: 01/29/18 02:15 Dose: 100 mls/hr Cefazolin Sodium/Dextrose (Kefzol 1 Gm In Dextrose Duplex (*)) 1 gm in 50 mls @ 200 mls/hr IVPB Q8H [facility] Last Admin: 01/29/18 13:48 Dose: 200 mls/hr Insulin Human Lispro (Humalog*) 0 units SUBCUT AC JOE PRN Reason: Protocol Last Admin: 01/29/18 13:37 Dose: 4 units Levalbuterol HCl (Xopenex 1.25 Mg/0.5 Ml Neb.Viktoria*) 1.25 mg INH Q4H PRN PRN Reason: SHORTNESS OF BREATH Mometasone Furoate/Formoterol Fumar (Dulera 200/5 Mdi*) 2 puff INH BID [facility] Last Admin: 01/29/18 09:58 Dose: 2 puff Montelukast Sodium (Singulair Tab*) 10 mg PO BEDTIME JOE Last Admin: 01/29/18 02:17 Dose: Not Given Naloxone HCl (Narcan*) 0.08 mg IV Q2M PRN PRN Reason: severe induced resp depression Stop: 01/29/18 23:33 Nifedipine (Procardia Xl Tab*) 60 mg PO DAILY JOE Omeprazole (Prilosec Cap*) 20 mg PO 0600 JOE Last Admin: 01/29/18 06:17 Dose: 20 mg Oxycodone/Acetaminophen (Percocet 5/325 Tab*) 1 tab PO Q4H PRN PRN Reason: PAIN Last Admin: 01/29/18 12:02 Dose: 1 tab Oxycodone/Acetaminophen (Percocet 5/325 Tab*) 2 tab PO Q4H PRN PRN Reason: PAIN - MODERATE TO SEVERE Last Admin: 01/29/18 16:44 Dose: 2 tab Pharmacy Profile Note (Scopolamine Patch Remove*) 1 note PATCH OFF Q72H ONE Stop: 01/31/18 23:36 Vital Signs - 8 hr 01/29/18 01/29/18 01/29/18 10:01 11:10 12:02 Temperature 98.2 F Pulse Rate 100 Respiratory 16 17 18 Rate Blood Pressure 127/53 (mmHg) O2 Sat by Pulse 96 Oximetry 01/29/18 01/29/18 01/29/18 12:24 14:34 15:35 Temperature 98.6 F Pulse Rate 91 Respiratory 16 16 18 Rate Blood Pressure 98/43 (mmHg) O2 Sat by Pulse 99 Oximetry 01/29/18 01/29/18 16:00 16:44 Temperature Pulse Rate Respiratory 16 Rate Blood Pressure (mmHg) O2 Sat by Pulse 99 Oximetry Oxygen Devices in Use Now: None Appearance: Appears comfortable in bed, daughter in room, pleasant and talkative. Eyes: No Scleral Icterus, PERRLA Ears/Nose/Mouth/Throat: Clear Oropharnyx, Mucous Membranes Moist Neck: NL Appearance and Movements; NL JVP, Trachea Midline Respiratory: Symmetrical Chest Expansion and Respiratory Effort, Clear to Auscultation Cardiovascular: NL Sounds; No Murmurs; No JVD, RRR Abdominal: NL Sounds; No Tenderness; No Distention Extremities: - - RLE with external fixator in place. Moderate distal edema and ecchymosis noted. No calf tenderness. Skin: No Rash or Ulcers Neurological: Alert and Oriented x 3, NL Sensation Nutrition: Taking PO's Result Diagrams: 01/29/18 12:28 01/28/18 20:59 Diagnostic Imaging: Patient Name: DEBORAH MACIAS Medical Record#: [id number] Ordering Physician: Javier DARNELL Acct.#: [id number] : 1950 Age: 67 Sex: F Location: EMERGENCY DEPARTMENT Exam Date: 01/28/181711 ADM Status: REG ER Order Information: LOWER LEG RIGHT Accession Number: [id number] CPT: 05688 INDICATION: Right leg injury after "2 dog ran into patient's legs" FINDINGS: The patient's right knee prosthesis appears to be anatomically aligned. There is no fracture or directly abutting the prostheses. There are minimally displaced fractures through the proximal tibia and fibular metaphyses exhibiting approximately 12 degrees of valgus deformity. Fracture of the fibula is minimally comminuted. IMPRESSION: Displaced fracture involving the proximal metaphyses of the right tibia and fibula. The right knee prosthesis appears to be otherwise anatomically aligned. INDICATION: Right leg pain after trauma COMPARISON: Chest x-ray dated October 09, 2017 TECHNIQUE: Single AP view of the chest was obtained. FINDINGS: The heart and mediastinum exhibit normal size and contour. The lungs are grossly clear. There is no evidence of a large pleural effusion. Visualized bones are normal for the patient's age. IMPRESSION: No radiographic evidence for acute cardiopulmonary abnormality on this single AP view chest x-ray. < EKG Data: EKG INTERPRETATION ECG Report Patient Name DEBORAH MACIAS Birthdate 1950 Sex F Order Number [id number] Date of ECG 01/28/2018 21:14:02 Interpretation Sinus rhythm.normal P axis, V-rate 60- 99 Nonspecific T abnormalities, anterior leads.T <-0.10mV, V2-V4 - ABNORMAL ECG - ECG NEEDS E-SIGNING Assess/Plan/Problems-Billing Assessment: A 67 y/o female with hx asthma and DM, who presented to the ED after sustaining a fall, with displaced right proximal tibia/fibula fracture, s/p external fixator placement last night. - Patient Problems (1) Tibia/fibula fracture Current Visit: Yes Status: Acute Comment: - Manegment per ortho, pain under control - Likely to be discharged to home tomorrow. - Per ortho, patient to return to OR on 02/06/18 for ORIF of right tib/fib - There is no contraindication to proceeding with surgery next week. Her RCRI index is 0. She does have issues with asthma which has been stable. She can resume her home inhaler regimen as well. Her chest x-ray is unremarkable. Her EKG with no significant changes. Again, she is medically optimized to proceed with surgery next week if no clinical changes noted. (2) Asthma Current Visit: Yes Status: Acute Comment: - Will continue her inhalers and incentive spirometer (3) Diabetes mellitus Current Visit: Yes Status: Acute Comment: - Lispro sliding scale while in-patient (4) GERD (gastroesophageal reflux disease) Current Visit: Yes Status: Chronic Comment: - PPI ordered (5) Hx of migraine headaches Current Visit: No Status: Chronic Comment: - Will resume prophylactic nefidipine (6) DVT prophylaxis Current Visit: Yes Status: Acute Comment: - On Lovenox 40mg subQ daily (7) Full code status Current Visit: Yes Status: Acute Status and Disposition: Inpatient, plan for discharge home tomorrow. Will return to OR tentatively on for ORIF Right tib/fib fracture.
[2018-01-29] MEDS ORDERED: NIFEdipine ER TAB* 60 MG PO SCH (21:00)
[2018-01-30] MEDS: oxyCODONE/Acetamin 5/325 MG* TAB PO PRN ×5 (02:13→18:24)
[2018-01-30] MEDS: Omeprazole CAP* 20 MG PO SCH (06:30)
[2018-01-30] MEDS: ceFAZolin 1 GM in Dextrose (*) 1 GM/50 ML BAG IVPB SCH ×2 (06:31→14:12)
[2018-01-30] MEDS: Enoxaparin(*) 40 MG/0.4 ML SYR SUBCUT SCH (07:50)
[2018-01-30] MEDS: Fluticasone NASAL SPRAY 50MCG* 16 gm SPRAY BTL BOTH NARES SCH (07:52)
[2018-01-30] MEDS: Mometasone/Formoter 200/5 MDI INH SCH (07:53)
--- NOTE | 2018-01-30 09:52 | PN ---
Progress Note - Progress Note Date of Service: 01/30/18 SOAP: Subjective: []Patient seen at bedside. She feels well and desires discharge home. Her right leg pain is rated as 6-7/10 which she considers tolerable. She has no chest pain , shortness of breath, dizziness. Objective: [] Vital Signs Temp 97.5 F 01/30/18 07:17 Pulse 82 01/30/18 07:17 Resp 18 01/30/18 08:29 BP 109/59 01/30/18 07:17 Pulse Ox 94 01/30/18 07:17 Intake & Output 01/29/18 01/30/18 01/30/18 18:59 06:59 18:59 Intake Total 1760 800 70 Output Total 0 300 Balance -290 500 70 Intake: IV Fluids 1085 70 ABX - CEFAZOLIN 105 50 NS (0.9%) 980 20 Oral 675 800 Output: Urine 2049 300 Other: Estimated Void Medium # Voids 1 1 General: Well appearing, NAD, laying comfortably in bed RLE: Exfix in place, spanning knee. Ecchymosis of medial and anterior lower leg , mildly tender to gentle palpation but compressible, not hot, not indurated and not fluctuant. Pin sites clean, dry, without erythema or discharge. Pin sites x 4 cleaned with 1:1 mix peroxide/ saline, dressed with betadine soaked 4x4s, 4x4s and gómez wraps. DF/PF intact, able to wiggle toes, sensation intact distally. DP pulse 2+, capillary refill less than two seconds distally. Thigh and calf are soft and supple without erythema or palpable cords. 1+ nonpitting edema of RLE. LLE: calf supple and nontender without erythema, edema or palpable cords. Assessment: []Right tib/fib fractures now POD 1 sp exfix RLE spanning knee Plan: []Hospital bed approved by insurance. Ramp to home being built currently. Pin care: daily 1:1 ratio peroxide, saline wash. Betadine soaked 4x4 around each pin, 4x4s, wrap with gómez Lovenox 40 mg SQ daily x 30 days NWB, no ROM RLE Elevate RLE above heart, ice F/U Dr James early next week
[2018-01-30] MEDS: Insulin LISPRO* 1 UNITS UNIT SUBCUT SCH ×3 (10:18→18:25)
[2018-01-30 13:55] LABS: Hematocrit 31 % (35-47); Hemoglobin 10.2 g/dl (12.0-16.0)
[2018-01-30] MEDS ORDERED: Cyclobenzaprine TAB* 10 MG PO PRN (16:01)
[2018-01-30 18:12] VITALS: BP 117/51
--- NOTE | 2018-01-31 06:58 | OP ---
DATE OF OPERATION: 01/28/18 - ROOM #343 DATE OF : 54. SURGEON: Andres James MD. TRUCK SERVICE MANAGER: None. ANESTHESIOLOGIST: Sarah Martines MD. ANESTHESIA: General anesthesia. PRE-OP DIAGNOSIS: Right proximal tibia and fibula shaft fractures, periprosthetic, displaced. POST-OP DIAGNOSIS: Right proximal tibia and fibula shaft fractures, periprosthetic, displaced. OPERATIVE PROCEDURE: 1. Closed reduction right proximal tibia and fibula shaft fractures, periprosthetic, displaced. 2. External fixator placement, right lower extremity, spanning the knee and right proximal tibia and fibula shaft fractures. ANTIBIOTICS: 2 g Ancef IV. IV FLUIDS: 1300 cc crystalloid. [id number] TIME: 47 minutes. RADIATION EXPOSURE WITH C-ARM: 38.6 seconds. 0.26683 mGy meter squared. SPECIMEN: None. IMPLANTS: Synthes large external fixator system with two pins in the femur, distal and two pins in the distal tibia with a connecting frame. ESTIMATED BLOOD LOSS: Minimal. COMPLICATIONS: None. INDICATIONS FOR PROCEDURE: The patient is a 67-year-old woman a community ambulator without assist, with a history of multiple prior right knee surgeries with the last surgery being a primary right total knee arthroplasty performed in [address] Tolbert at [facility]. The patient was bumped and knocked over by 2 of her dogs on 01/28/18. She was unable to stand and weight-bear. Significant pain about the right lower leg. Imaging demonstrated displaced fractures of the right proximal tibia and fibula. Knee arthroplasty did not appear loose radiographically. Patient has multiple surgical scars about the knee. I measured approximately 10 to 11 degrees of valgus angulation of both the tibia and fibula, which was more of the tibia than the fibula which was slightly less angulated. By valgus I mean medial apex angulation. There was some less angulation in the sagittal plane at each fracture site. We first considered a simple long leg splint mobilization. However, given the seriousness of the patient's injuries, her discomfort and her already significant amount of soft tissue swelling and ecchymosis, I thought an external fixator would be much more comfortable and enable her swelling to decrease faster. Ultimately, it is almost certain that the patient will require open reduction internal fixation surgery, but at the time of her presentation to the emergency room, the patient already had too much soft tissue swelling and bruising to perform that surgery. The patient spoke of wishing to avoid open reduction internal fixation surgery. I said that it was unlikely that external fixation alone would be sufficient intervention to allow her to heal. But I told her it is something we could consider after this operation. Discussed risks and potential complications of surgery. DESCRIPTION OF PROCEDURE: Patient signed a written consent preoperatively. Operative extremity was marked in the preoperative holding after a long leg splint with posterior strut and a sugar tong strut had been placed in the emergency department. The patient was brought into the operating room and placed supine on the operating room table. The patient was sedated and intubated. I held off on placing on a tourniquet and would consider placing one sterilely as needed. A large bump was placed under the right hemipelvis and bone foam was placed under the right lower extremity. The right lower extremity was prepped with Chlorhexidine and then ChloraPrep and then draped. A C-arm was brought into the room. Surgical time-out was performed. I marked a point on the thigh, 11 cm proximal to the proximal pole of the patella. In this location, I made a short longitudinal stab incision. I used a Bovie electrocautery with some minimal subcutaneous bleeding. I dissected with a hemostat down to bone. I placed a double sleeve and I drilled the femoral shaft bi- cortically with a 3.5 mm drill bit. I brought in the C-arm and confirmed position of drill bit with AP and lateral image. I then removed the drill and placed a pin by hand bi-cortically. I then used a pin sleeve to determine the proper spacing of pins. This was to determine where my next stab incision would be more proximally. I made stab incision, dissected down to bone , drilled and placed a second pin by hand. I started to set up the proximal side of the external fixator. I next moved to the distal lower leg. I made my stab incisions far from the fracture site knowing that a large plate might be required. Given the context of knee arthroplasty as well, infection would have to be avoided at all cost. I made a stab incision about the distal lower leg overlying the anteromedial tibia close to the anterior tibial crest. Dissected with a hemostat down to bone. I drilled and then placed a pin, which aimed posterior and posterolateral. I placed a second pin. I put together my external fixator frame. I tightened everything except for distally. I next performed a closed reduction of the fractures. I was able to improve significantly the reduction compared to preoperative. I was able to remove the preoperative angulation, although there was still some translational displacement of perhaps 10% going through the bone. I obtained final x-ray views of the fracture site AP, lateral and oblique. I did note that with movement of the lower extremity, there was still movement of the fracture site, no surprising given that the pins are placed far from fracture. It should be noted that I made the bars of my external fixator frame placed anteromedial and anterolateral far from each other to optimize and maximize stability of the external fixator frame. The knee was placed in approximately 15 degrees of flexion while the external fixator frame was tightened. We then cleaned the skin and wounds with irrigation. I wrapped Xeroform around the base of all 4 pins. I then took 4x4's that had been soaked in Betadine, dried them out, and placed those around each pin. I then placed an Joe bandage about the proximal and distal pins. I confirmed that all components of the external fixator were maximally tightened. I next felt for the patient's pulses , dorsalis pedis and posterior tibialis, which were both excellent, and brisk. The patient was lightened of sedation and extubated and taken to the PACU. DISPOSITION: This case finished at midnight. The plan was for the patient to be admitted postoperatively. She would receive IV antibiotics postoperatively in the hospital. She would receive pain, medication, oral and IV as needed. She would receive DVT prophylaxis with Lovenox 40 mg subcutaneous daily. She would see Physical Therapy and work with them. She is nonweightbearing right lower extremity. She will be educated about pin site care and will have that done daily by nursing or by herself. Unclear how long the patient will be admitted for, but she did express a preference to go home rather than to a rehab facility. She will follow up with me in clinic next week to do a skin check and discuss likely open reduction internal fixation surgery. The most likely date for that surgery will be 02/06/18. [id number]/[facility] #: [id number] [facility]ITALJanna
[2018-01-31] MEDS ORDERED: Scopolamine PATCH Remove* 1 NOTE MISC PATCH OFF ONE (23:35)
--- NOTE | 2018-02-01 07:13 | DS ---
DISCHARGE SUMMARY: DATE OF ADMISSION: 01/29/18 DATE OF DISCHARGE: 01/30/18 SURGEON: Dr. Andres James.* (DICTATED BY MANN MARTINEZ) PREOPERATIVE DIAGNOSIS: Right proximal tibia and fibular shaft fracture, periprosthetic displaced. OPERATIVE PROCEDURE: 1. Closed reduction of right proximal tibia and fibular fractures, periprosthetic displaced. 2. External fixator placement, right lower extremity, spanning the knee and right proximal tibial and fibula shaft fractures. HISTORY: Ms. Macias is a 67-year-old woman who suffered a right proximal tibia and fibula shaft fracture, periprosthetic displaced after being knocked over by her 2 dogs on 01/28/18. She was unable to stand and weight bear. She was then in significant amount of pain and elected to undergo a closed reduction of right proximal tibia and fibula shaft fracture, periprosthetic displaced, and external fixator placement. HOSPITAL COURSE: Trinidad Macias was admitted to [facility] on . She underwent a closed reduction of right proximal tibia and fibula shaft fractures as well as external fixator placement. She tolerated the procedure well. She recovered briefly in the PACU and was transferred in stable condition to the short stay surgical unit. On postop day 1, she was well appearing, in no acute distress. External fixator was then placed without any ecchymosis in the medial and anterior lower leg, tender, not injured or fluctuant. Pin sites were clean and dry without erythema or discharge. Pin sites were cleaned also with peroxide and saline 1:1 mix, dressed with Betadine soaks, 4x4s. Patient was able to wiggle her toes, dorsiflex, plantarflex at the ankle. Her thigh and calf are soft and supple. She was also seen by hospitalist service during her stay for management of her asthma, diabetes, GERD , migraines. Postop day 2, patient was seen at bedside. She was resting comfortably. Her pin sites were again cleaned without changes in physical condition. She does have difficulty with getting up with physical therapy. She became very dizzy early in the morning. Later in the day when she again transferred with physical therapy, she did much better without any dizziness. She was able to transfer from the bed to the chair with the walker without becoming dizzy, noxious, or lightheaded. She seemed to be medically and orthopedically stable for discharge home. DISCHARGE MEDICATIONS: 1. Nasacort 2 puffs both nares q.a.m. 2. Singulair 10 mg p.o. q.p.m. 3. Dulera 200/5 two puffs inhaled b.i.d. 4. Glucosamine 1000 mg p.o. b.i.d. 5. Metformin 750 p.o. q.p.m. 6. AcipHex 20 mg p.o. q.a.m. 7. Lovastatin 20 mg p.o. q.p.m. 8. Nifedipine 60 mg p.o. q.p.m. 9. Diclofenac 50 mg p.o. b.i.d. 10. Calcium carbonate one p.o. b.i.d. 11. Aspirin 81 mg p.o. daily. 12. Acetaminophen 650 mg p.o. q.6 hours p.r.n. 13. Lovenox 40 mg subcu q.24 hours for 30 days. 14. Percocet 5/325 one to two tabs every 4 to 6 hours p.r.n. max daily dose of 8. DISCHARGE PLAN: Daily pin care, 1:1 ratio peroxide and saline, wash around pin sites, dress with Betadine soaks, 4x4s, then wrap with Joe wrap. Blood clot prevention with Lovenox 40 mg subcu daily x30 days, nonweightbearing right leg. No range of motion of the right knee. Use wheelchair for mobilization, use walker for transfers. Patient has hospital bed that was sent to her home. Elevate right lower extremity. Pain control: Percocet 5/325 one to two tabs every 4 to 6 hours as needed for pain, max daily dose of 8. Also given cyclobenzaprine 5 mg, may take 1 tab every 8 hours as needed. Make an appointment with Dr. James early next week Sunday or Sunday. Call orthopedic office for any concerns. MANN MARTINEZ [id number]/[facility] #: [id number] [facility]
== END 2018-01-30 18:40 | disposition home or self-care (01) ==
LOC: ED 16:11 → OR 21:03 → SSU 01-29 00:18
PROVIDERS: ADMIT Orthopaedic Surgery; ATTEND Internal Medicine
PROC: 0QSB34Z Reposition Right Lower Femur with Internal Fixation Device, Percutaneous Approach (ICD-10-PCS; principal; 2018-01-29)
PROC: 0QSG34Z Reposition Right Tibia with Internal Fixation Device, Percutaneous Approach (ICD-10-PCS; 2018-01-29)
DX: S82.101A Unspecified fracture of upper end of right tibia, initial encounter for closed fracture (principal); M97.11XA Periprosthetic fracture around internal prosthetic right knee joint, initial encounter; S82.831A Other fracture of upper and lower end of right fibula, initial encounter for closed fracture; W19.XXXA Unspecified fall, initial encounter; Y92.9 Unspecified place or not applicable; Z79.82 Long term (current) use of aspirin
CPT/HCPCS: 36415; 71045; 76000; 80053; 85014; 85018; 85025; 85048; 85610; 85730; 86850; 86900; 86901; 93005; 94640; 99283; A9270-GY; C1713; C1776; G0378; G8978-GP-CL; G8979-GP-CK; J0690; J1100; J1170; J1650; J2250; J2270; J2405; J2710; J3010

== ENCOUNTER 2018-02-06 09:30 | Inpatient (IN) | payer MEDICARE, BC ==
[~2018-02-06 09:30] MED LIST: Buffered Lidocaine 0.9% SYRIN* 5 ML/SYR SYRINGE INTRADERM ONE; Famotidine IV* 10 MG/ML 2 ML (20 mg) IV ONE; Sodium Citrate/Citric Acid* 15 ML UDC PO ONE
[2018-02-07] MEDS ORDERED: Buffered Lidocaine 0.9% SYRIN* 5 ML/SYR SYRINGE INTRADERM ONE (11:23)
[2018-02-08] MEDS ORDERED: Dexamethasone IV* 4 MG/ML 1 ML (4 MG) IV SLOW PU ONE (06:00)
[2018-02-08] MEDS ORDERED: Famotidine TAB* 20 MG PO ONE (06:00)
--- OUTSIDE RECORDS SUMMARY | 2018-02-08 08:06 | XMS REPORT ---
:1950 External Reference #:[id number] Author Organization [employer] Address [address] [address] Phone [phone] Care Team Providers Name Role Phone Lokesh Liu MD Primary Care Physician Unavailable Payers Type Date Identification Numbers Payment Provider Subscriber Medicare Primary Policy Number: [id number] Medicare Trinidad Macias PayID: [id number] [address] [place] [address] Medigap Part B Effective: 2012 Policy Number: BS Facets Jack Macias [id number] PayID: [id number] [address] [address] [place] [address] Problems Date Description Provider Status Onset: 10/17/2012 Type 2 diabetes mellitus Miah Crystal Active Sophie,FACP Onset: 10/17/2012 Localized, primary Miah Crystal Active osteoarthritis of the lower leg M.Nicole,FACP Onset: 10/17/2012 Migraine without aura, not Miah Crystal Active refractory MClover,FACP Onset: 04/02/2013 Hyperlipidemia Miah Crystal Active Sophie,FACP Onset: 03/25/2015 Dilated cardiomyopathy Miah Crystal, Inactive MClover,FACP Inactive: 09/28/2015 Note: EF 45% on echo Family History Date Family Member(s) Problem(s) Comments General Heart Disease Father Congestive Heart Failure (CHF) Father Coronary Artery Disease (CAD) Father Hypertension Father Diabetes Type II Mother due to Kidney Disease () Mother Diabetes, Non Insulin Dependent Mother Migraine Mother Breast Cancer Siblings 3 First Brother due to Cancer, Colon () - and liver First Brother Hypertension First Brother Coronary Artery Disease (CAD) First Brother Diabetes First Brother Lung Cancer Second Brother Diabetes, Non Insulin Dependent Second Brother Hypertension Second Brother Heart Disease stent Second Brother Lung Cancer Third Brother Coronary Artery Disease (CAD) stents Third Brother Diabetes Type II Maternal Aunts due to Breast Cancer () Social History Type Date Description Comments Marital Status Lives With Occupation Retired Cigarette Use Never Smoked Cigarettes ETOH Use 04/02/2015 Denies alcohol use Smoking Patient has never smoked Recreational Drug Use Denies Drug Use Daily Caffeine Soda occationally Exercise Type/Frequency Exercises regularly walking daily, stretching/lifting exercise daily General Hx Text 2 daughters Allergies, Adverse Reactions, Alerts Date Description Reaction Status Severity Comments 02/24/2015 Omeprazole active headache 04/23/2015 Perfume active 04/23/2015 Cleaning Chemicals active 10/17/2012 NKDA inactive Medications Medication Date Status Form Strength Qnty SIG Indications Ordering Provider Cephalexin 02/05 Active Tablets 500mg 30tab 1 tab by M97.11xD s mouth F three Erika, times a MD day for 10 days Colace 01/30 Active Capsules 100mg 90cap 1 tab s every 12 F hours as Erika, needed for MD constipati on Lovenox 01/30 Active Solution 40mg/0.4M 12ml inject 40 L mg ( F 0.4ml) Erika, subcutaneo usly daily for 30 days Oxycodone-Acetami 01/30 Active Tablets 5-325mg 56tab 1-2 by Andres gonsalez s mouth F every 4-6 Erika, hours as MD needed for post-op pain. max 6 per day Cyclobenzaprine 01/30 Active Tablets 5mg 30tab 1 tab as Andres ALLEN s often as F every 8 Erika, hours for MD muscle spasm Lovastatin 04/02 Active Tablets 20mg 90tab by mouth 272.4 Miah s elyse Crystal, night at M.DAlena,FACP bedtime Aspirin 04/02 Active Tablets 81mg 90tab 1 po qd 272.4 Miah dann Crystal M.D.,FACP Onetouch Ultra 10/17 Active Strips 200un Test Up To Miah Simpson its Four Times Nicole Crystal, A Day Or M.DAlena,FACP as Directed Onetouch 10/17 Active Misc 200un use as Miah [facility] its directed Nicole Crystal, Or as M.D.,FACP Directed Xopenex HFA Active Aerosol 45mcg/Act 1unit 2 puffs Unknown /0000 s qid prn Glucosamine Active Capsules 1000mg 2 po qd Unknown /0000 Multi For Her 50+ Active Capsules 1 po qd Unknown / Dulera Active Aerosol 200-5mcg/ 1 unit Unknown Act puff twice a day Nasonex Active Suspension 50mcg/Act two sprays each nostril once daily Rabeprazole Active Tablets DR 20mg 1 by mouth Unknown Sodium / every day Metformin HCL ER Active Tablets ER 750mg take one 24HR tablet by mouth in PM Nifedipine ER Active Tablets ER 60mg 1 by mouth Unknown / 24HR every day Singulair Active Tablets 10mg 1 by mouth Unknown /0000 every day Calcium 600+D3 Active Tablets 600-800mg Unknown Plus Minerals /0000 -Unit Fiorinal Active Capsules prn /0000 Nifedipine ER 09/23 Hx Tablets ER 60mg 90tab 1 by mouth Miah 24HR s every DAlena Crystal, - evening M.D.,[facility] 02/04 Nifedipine ER 09/23 Hx Tablets ER 60mg 90tab 1 by mouth Miah Osmotic Release 24HR s every DAlena Crystal, - evening M.D.,[facility] 09/23 Fioricet 09/13 Hx Capsules 50-300-40 24cap take 1 by Miah mg s mouth q4 DAlena Crystal, - as needed M.D.,[facility] 02/04 MDD 3 Calcium + D 04/23 Hx Tablets 60tab daily Skyler s Nicole Holt, - M.D. 02/04 Nifedipine ER 03/18 Hx Tablets ER 60mg 90tab 1 by mouth Miah Osmotic 24HR s every DAlena Crystal, - evening M.D.,[facility] 09/23 Furosemide 03/18 Hx Tablets 20mg 20tab 1 by mouth R60.9 s every day iNcole Crystal, - as needed M.Nicole,[facility] 02/04 (pt not used since 04/2015) Chlorthalidone 03/06 Hx Tablets 25mg 30tab 1/ to s tab by Ordering - mouth Provider 03/18 every day /2014 Ranitidine HCL 02/24 Hx Tablets 300mg 90tab by mouth s every day Nicole Crystal, - (pt takes M.DAlena,[facility] 02/04 as needed) /2017 Omeprazole 02/[address] 20mg 30cap 1 by mouth s every day Jatinder Alicea M.D.,[facility] 02/24 Calcium 1200 10/14 Hx Chewtabs [id number] 90uni 1 po qd Isamar mg-Unit ts Juan Manuel, - N.P. 04/22 Vitamin D3 High 10/14 Hx Capsules 1000Unit 1 po qd Isamar Juan Manuel, - N.P. 04/22 Fish Oil 04/02 Hx Capsules 1000mg 1 po bid Jatinder Alicea M.D.,[facility] 10/10 Nifedipine ER 10/17 Hx Tablets ER 60mg 180ta 1 by mouth 24HR bs twice a Nicole Crystal, - day Sophie,[facility] 03/[address] 40mg 90cap 1 po qd s Jatinder Alicea M.D.,[facility] 10/10 Nabumetone Hx Tablets 500mg 180ta 1 po bid bs Jatinder Alicea M.D.,[facility] 04/09 Nifediac cc Hx Tablets ER 60mg 1 po bid 24HR - 10/17 Singulair Hx Tablets 10mg 90tab 1 po qd s - 10/10 Prochlorperazine Hx Tablets 10mg 30tab 1 q8h as Miah /0000 s needed (pt Nicole Crystal, - is taking M.D.,FACP 02/04 a 5 mg /2017 tablet as needed) Symbicort Hx Aerosol 160-4.5mc 1unit 2 puffs po Unknown /0000 g/Act s bid - 04/07 Nasonex Hx Suspension 50mcg/Act 1unit 2 sprays Unknown /0000 s to each - nostril 04/09 daily Magnesium Hx Tablets 400mg 1 tablet Unknown /0000 daily - 02/04 Nortriptyline HCL Hx Capsules 25mg 180ca Take 1 To Miah /0000 ps 2 Capsules Nicole Crystal, - AT Bedtime M.Nicole,[facility] 02/04 (pt not used in 3 years) Zantac Hx Tablets 150mg 60tab 1 by mouth Isamar /0000 s twice a Juan Manuel, - day as N.P. 02/23 Fioricet Hx Tablets 50-325-40 24tab take 1 by Miah /0000 mg s mouth q4 Nicole Crystal, - as needed Yandel.DAlena,[facility] 09/13 migraine MDD 3 Meloxicam Hx Tablets 7.5mg take 1 tab Unknown /0000 by mouth q - Am with 02/04 Medications Administered in Office Medication Date Status Form Strength Qnty SIG Indications Ordering Provider Technetium TC Administered Injection Ica Nuclear 99M 015 Schedule Tetrofosmin, Per Unit Dose Up To 40 Millicuries Inj, Administered Injection Alonso Loi Regadenoson, 015 Haley, 0.1 MG TonnyDAlena, FACVita, FASNC Inj, Administered Injection Skyler Rivera Regadenoson, 015 Sophie Holt 0.1 MG Technetium TC Administered Injection Alonso Monsivais 99M 015 Natali HaleyosmSophie solares, FACC, Per Unit Dose FASNC Up To 40 Millicuries Technetium TC Administered Injection Skyler DAlena 99M 015 Sophie Holt Tetrofosmin, Per Unit Dose Up To 40 Millicuries Immunizations CPT Code Status Date Vaccine Lot # [id number] Given 06/25/2015 Afluria Vaccine [id number] Given 07/13/2014 Pneumococcal Conjugate Vaccine 13 Valent For [id number] Intramuscular Use 85767 Given 07/03/2014 Influenza Virus Vaccine, Quadrivalent, Split, [id number] Preservative Free [id number] Given 10/10/2013 Hepatitis B Vaccine Adult Dosage [id number] 77230 Given 07/03/2013 Zoster (Zostavax) [id number] 75507 Given 07/03/2013 Flu Vaccine Split Virus Preservative Free For [id number] Indiv 3Yr Older 01061 Given 09/24/2007 Pneumonia Vaccine [id number] Given 09/24/2007 Tdap - Tetanus/Diptheria/Acellular Pertussis Vital Signs Date Vital Result Comment 10/18/2016 Height 68 inches 5'8" Weight 212.00 lb no shoes Heart Rate 70 /min BP Systolic Sitting 126 mmHg Rue lrg cuff BP Diastolic Sitting 76 mmHg Rue lrg cuff BP Systolic Standing 118 mmHg Rue lrg cuff BP Diastolic Standing 78 mmHg Rue lrg cuff Respiratory Rate 16 /min BMI (Body Mass Index) 32.2 kg/m2 Ejection Fraction 45-50% 03/24/2015 09/28/2015 Height 68 inches 5'8" Weight 216.00 lb Heart Rate 72 /min BP Systolic Sitting 128 mmHg BP Diastolic Sitting 78 mmHg Respiratory Rate 14 /min O2 % BldC Oximetry 98 % BMI (Body Mass Index) 32.8 kg/m2 06/04/2015 Height 68 inches 5'8" Weight 216.00 lb w/o shoes Heart Rate 82 /min reg BP Systolic Sitting 118 mmHg Lue, lg cuff BP Diastolic Sitting 80 mmHg Lue, lg cuff BP Systolic Standing 114 mmHg Lue BP Diastolic Standing 86 mmHg Lue Respiratory Rate 18 /min BMI (Body Mass Index) 32.8 kg/m2 Ejection Fraction 45-50% as of 03/24/15 echo 04/23/2015 Height 68 inches 5'8" Weight 216.00 lb with shoes Heart Rate 104 /min BP Systolic 122 mmHg Ra, Lg cuff BP Diastolic 86 mmHg Ra, Lg cuff BP Systolic Sitting 124 mmHg LA, Lg cuff BP Diastolic Sitting 86 mmHg LA, Lg cuff BP Systolic Standing 112 mmHg LA BP Diastolic Standing 84 mmHg LA Respiratory Rate 16 /min BMI (Body Mass Index) 32.8 kg/m2 04/08/2015 Height 65.5 inches 5'5.50" Weight 217.38 lb Heart Rate 102 /min BP Systolic Sitting 128 mmHg BP Diastolic Sitting 76 mmHg Body Temperature 98.4 F O2 % BldC Oximetry 98 % BMI (Body Mass Index) 35.6 kg/m2 03/18/2015 Weight 218.00 lb Heart Rate 92 /min BP Systolic Sitting 114 mmHg BP Diastolic Sitting 75 mmHg Body Temperature 98.8 F O2 % BldC Oximetry 98 % 07/13/2014 Height 65.5 inches 5'5.50" Weight 211.00 lb Heart Rate 68 /min BP Systolic Sitting 126 mmHg BP Diastolic Sitting 74 mmHg Body Temperature 98.7 F BMI (Body Mass Index) 34.6 kg/m2 04/09/2014 Height 65.5 inches 5'5.50" Weight 202.50 lb Heart Rate 116 /min BP Systolic Sitting 110 mmHg BP Diastolic Sitting 66 mmHg Body Temperature 98.2 F BMI (Body Mass Index) 33.2 kg/m2 10/10/2013 Weight 210.00 lb Heart Rate 86 /min BP Systolic Sitting 122 mmHg BP Diastolic Sitting 78 mmHg 04/02/2013 Height 65.75 inches 5'5.75" Weight 206.50 lb Heart Rate 96 /min BP Systolic Sitting 108 mmHg BP Diastolic Sitting 70 mmHg BMI (Body Mass Index) 33.6 kg/m2 02/28/2013 Weight 208.00 lb Heart Rate 103 /min BP Systolic Sitting 120 mmHg BP Diastolic Sitting 78 mmHg 10/17/2012 Height 65.75 inches 5'5.75" Weight 208.00 lb Heart Rate 92 /min BP Systolic Sitting 114 mmHg BP Diastolic Sitting 76 mmHg BMI (Body Mass Index) 33.8 kg/m2 Results Test Date Test Result H/L Range Note Laboratory test finding 01/29/2018 Point of Care Glucose 128 mg/dL High 70 -100 1 Laboratory test finding 09/28/2015 Hemoglobin A1c 6.4 5-7 Laboratory test finding 03/19/2015 B-Type Natriuretic 32 pg/mL 2 Peptide BNP TSH (Thyroid Stim Horm) 1.23 ?IU/mL 0.34-5.60 3 CBC Auto Diff 03/19/2015 White Blood Count 6.5 10^3/uL 4.8-10.8 Red Blood Count 3.93 10^6/uL Low 4.0-5.4 Hemoglobin 12.5 g/dL 12.0-16.0 Hematocrit 38 % 35-47 Mean Corpuscular Volume 98 fL High 80-97 Mean Corpuscular Hemoglobin 32 pg High 27-31 Mean Corpuscular HGB Conc 33 g/dL 31-36 Red Cell Distribution Width 13 % 10.5-15 Platelet Count 228 10^3/uL 150-450 Mean Platelet Volume 8 um3 7.4-10.4 Abs Neutrophils 4.2 10^3/uL 1.5-7.7 Abs Lymphocytes 1.4 10^3/uL 1.0-4.8 Abs Monocytes 0.7 10^3/uL 0-0.8 Abs Eosinophils 0.1 10^3/uL 0-0.6 Abs Basophils 0.1 10^3/uL 0-0.2 Abs Nucleated RBC 0 10^3/uL Granulocyte % 64.2 % 38-83 Lymphocyte % 22.1 % Low 25-47 Monocyte % 11.0 % High 1-9 Eosinophil % 1.9 % 0-6 Basophil % 0.8 % 0-2 Nucleated Red Blood Cells % 0.1 Urine Microalbumin Random 03/19/2015 Ur Microalbumin (mg/L) 26.0 mg/L Urine Creatinine 282.72 mg/dL Urine Microalbumin/Creatinine 9.1 ug/mg <31 Laboratory test 03/19/2015 Hemoglobin A1c (Glyco 6.5 % High Less than 6.0 4 finding HGB) Comp Metabolic Panel 03/19/2015 Sodium 138 mmol/L 133-145 Potassium 4.3 mmol/L 3.5-5.0 Chloride 106 mmol/L 101-111 Co2 Carbon Dioxide 25 mmol/L 22-32 Anion Gap 7 mmol/L 2-11 Glucose 118 mg/dL High 70-100 Blood Urea Nitrogen 22 mg/dL 6-24 Creatinine 0.75 mg/dL 0.51-0.95 BUN/Creatinine Ratio 29.3 High 8-20 Calcium 9.2 mg/dL 8.6-10.3 Total Protein 6.8 g/dL 6.4-8.9 Albumin 4.2 g/dL 3.2-5.2 Globulin 2.6 g/dL 2-4 Albumin/Globulin Ratio 1.6 1-3 Total Bilirubin 0.30 mg/dL 0.2-1.0 Alkaline Phosphatase 78 U/L 34-104 Alt 20 U/L 7-52 Ast 19 U/L 13-39 Egfr Non- 78.3 >60 Egfr 100.7 >60 5 Lipid Profile (Trig/Chol/HDL) 03/19/2015 Triglycerides 129 mg/dL 6 Cholesterol 151 mg/dL 7 HDL Cholesterol 55.5 mg/dL 8 LDL Cholesterol 70 mg/dL 9 Urine Microalbumin Random 04/09/2014 Ur Microalbumin (mg/L) 7.0 mg/dL &lt ;30 10 Urine Creatinine 91.58 mg/dL Urine Microalbumin/Creatinine 7.6 Less Than 31 Laboratory test finding 04/09/2014 Hemoglobin A1c 5.8 5-7 Comp Metabolic Panel 04/03/2014 Sodium 138 mmol/L 133-145 11 Potassium 4.4 mmol/L 3.7-5.6 11 Chloride 106 mmol/L 101-111 11 Co2 Carbon Dioxide 27 mmol/L 22-32 11 Anion Gap 5 mmol/L 2-11 11 Glucose 140 mg/dL High 70-100 11 Blood Urea Nitrogen 29 mg/dL High 6-24 11 Creatinine 0.68 mg/dL 0.51-0.95 11 BUN/Creatinine Ratio 42.6 High 8-20 11 Calcium 9.3 mg/dL 8.6-10.3 11 Total Protein 6.8 g/dL 6.4-8.9 11 Albumin 4.1 g/dL 3.2-5.2 11 Globulin 2.7 g/dL 2-4 11 Albumin/Globulin Ratio 1.5 1-3 11 Total Bilirubin 0.30 mg/dL 0.2-1.0 11 Alkaline Phosphatase 82 U/L 34-104 11 Alt 13 U/L 7-52 11 Ast 17 U/L 13-39 11 Egfr Non- 88.0 >60 11 Egfr 113.1 >60 11, 12 Lipid Profile (Trig/Chol/HDL) 04/03/2014 Triglycerides 114 mg/dL 11, 13 Cholesterol 142 mg/dL 11, 14 HDL Cholesterol 61.7 mg/dL 11, 15 LDL Cholesterol 58 mg/dL 11, 16 Laboratory test finding 10/10/2013 Hemoglobin A1c 5.7 5-7 Lipid Profile (Trig/Chol/HDL) 06/27/2013 Triglycerides 85 mg/dL 40-200 Cholesterol 153 mg/dL Less than 200 HDL Cholesterol 59 mg/dL 40-60 17 Cholesterol/HDL Ratio 2.6 Average 1-4.44 LDL Cholesterol 77.0 Less Than 100 18 Urine Microalbumin Random 03/24/2013 Ur Microalbumin (mg/L) < 2 mg/L 19 Urine Creatinine 25.5 mg/dL Laboratory test finding 03/24/2013 Hemoglobin A1c 6.4 % High Less than 6.0 20 Comp Metabolic Panel 03/24/2013 Sodium 139 mmol/L 133-145 Potassium 4.6 mmol/L 3.5-5.0 Chloride 104 mmol/L 101-111 Co2 Carbon Dioxide 28.0 mmol/L 22-32 Anion Gap 7.0 mmol/L 2-11 Glucose 111 mg/dL High 70-100 Blood Urea Nitrogen 22 mg/dL 6-24 Creatinine 0.60 mg/dL 0.50-1.40 BUN/Creatinine Ratio 36.7 High 8-20 Calcium 9.6 mg/dL 8.1-9.9 Total Protein 6.4 g/dL 6.2-8.1 Albumin 4.0 g/dL 3.2-5.2 Globulin 2.4 g/dL 2-4 Albumin/Globulin Ratio 1.7 1-3 Total Bilirubin 0.6 mg/dL 0.4-1.5 Alkaline Phosphatase 92 U/L 30-110 Alt 19 U/L 14-54 Ast 18 U/L 12-42 Egfr Non- 102.0 >60 Egfr 131.1 >60 21 Lipid Profile (Trig/Chol/HDL) 03/24/2013 Triglycerides 108 mg/dL 40-200 Cholesterol 208 mg/dL High Less than 200 HDL Cholesterol 58 mg/dL 40-60 22 Cholesterol/HDL Ratio 3.6 Average 1-4.44 LDL Cholesterol 128.4 High Less Than 100 23 1 Integration Solution Architect: [id number] 2 >100 to <200 pg/mL: likely compensated congestive heart failure (CHF) 200 to 400 pg/mL: likely moderate CHF >400 pg/mL: likely moderate to severe CHF 3 FASTING 4 Therapeutic target for the treatment of diabetes Mellitus patients is <7% HBA1C, and in selective patients <6.0%.Please refer to [place] [employer] Diabetic care guidelines for further information. 5 Because ethnic data is not always readily available, this report includes an eGFR for both -Americans and non- Americans. The National Kidney Disease Education Program (NKDEP) does not endorse the use of the MDRD equation for patients that are not between the ages of 18 and 70, are , have extremes of body size, muscle mass, or nutritional status, or are non- or non-. According to the National Kidney Foundation, irrespective of diagnosis, the stage of the disease is based on the level of kidney function: Stage Description GFR(mL/min/1.73 m(2)) 1 Kidney damage with normal or decreased GFR 90 2 Kidney damage with mild decrease in GFR 60-89 3 Moderate decrease in GFR 30-59 4 Severe decrease in GFR 15-29 5 Kidney failure <15 (or dialysis) 6 Desirable <150 Borderline high 150-199 High 200-499 Very High >500 7 Desirable <200 Borderline high 200-239 High >239 8 Low <40 Desirable: 40-60 High: >60 9 Desirable: <100 mg/dL Near Optimal: 100-129 mg/dL Borderline High: 130-159 mg/dL High: 160-189 mg/dL Very High: >189 mg/dL 10 Microalbuminuria in a random sample is defined as: Microalbumin/Creatinine ratio of 30-299 ug/mg. 11 FASTING 12 Because ethnic data is not always readily available, this report includes an eGFR for both -Americans and non- Americans. The National Kidney Disease Education Program (NKDEP) does not endorse the use of the MDRD equation for patients that are not between the ages of 18 and 70, are , have extremes of body size, muscle mass, or nutritional status, or are non- or non-. According to the National Kidney Foundation, irrespective of diagnosis, the stage of the disease is based on the level of kidney function: Stage Description GFR(mL/min/1.73 m(2)) 1 Kidney damage with normal or decreased GFR 90 2 Kidney damage with mild decrease in GFR 60-89 3 Moderate decrease in GFR 30-59 4 Severe decrease in GFR 15-29 5 Kidney failure <15 (or dialysis) 13 Desirable <150 Borderline high 150-199 High 200-499 Very High >500 14 Desirable <200 Borderline high 200-239 High >239 15 Low <40 Desirable: 40-60 High: >60 16 Desirable <100 Near Optimal 100-129 Borderline high 130-159 High 160-189 Very High >189 17 HDL Interpretation: Undesirable: High Risk: Less than 40 mg/dL Desirable: Low Risk: Greater than 60 mg/dL 18 LDL Interpretation: Low Risk Optimal Level: LDL Less than 100 mg/dL Near or Above Optimal: LDL 100-129 mg/dL Borderline High Risk: LDL 130-159 mg/dL High Risk: LDL 160-189 mg/dL Very High Risk: LDL Greater than 189 mg/dL 19 Microalbuminuria in a random sample is defined as: Microalbumin/Creatinine ratio of 30-299 ug/mg. 20 Therapeutic target for the treatment of diabetes Mellitus patients is <7% HBA1C, and in selective patients <6.0%.Please refer to [place] [employer] Diabetic care guidelines for further information. 21 Because ethnic data is not always readily available, this report includes an eGFR for both -Americans and non- Americans. The National Kidney Disease Education Program (NKDEP) does not endorse the use of the MDRD equation for patients that are not between the ages of 18 and 70, are , have extremes of body size, muscle mass, or nutritional status, or are non- or non-. According to the National Kidney Foundation, irrespective of diagnosis, the stage of the disease is based on the level of kidney function: Stage Description GFR(mL/min/1.73 m(2)) 1 Kidney damage with normal or decreased GFR 90 2 Kidney damage with mild decrease in GFR 60-89 3 Moderate decrease in GFR 30-59 4 Severe decrease in GFR 15-29 5 Kidney failure <15 (or dialysis) 22 HDL Interpretation: Undesirable: High Risk: Less than 40 mg/dL Desirable: Low Risk: Greater than 60 mg/dL 23 LDL Interpretation: Low Risk Optimal Level: LDL Less than 100 mg/dL Near or Above Optimal: LDL 100-129 mg/dL Borderline High Risk: LDL 130-159 mg/dL High Risk: LDL 160-189 mg/dL Very High Risk: LDL Greater than 189 mg/dL Procedures Date CPT Code Description Status Comment 10/09/2017 26970 Pulmonary Function><Bronchodil Completed 10/19/2016 43919 ECHO Transthoracic, Real-Time 2D With Doppler Completed And Color Flow 10/18/2016 95122 EKG Tracing & Interpretation Completed 08/23/2015 Diabetic Retinal Eye Exam Completed 05/06/2015 19422 Stress Test Completed 05/06/2015 78296 Myocardial Perfusion Imaging Tomographic Completed (Spect) Multiple Studies 05/06/2015 45969 Myocardial Perfusion Imaging Tomographic Completed (Spect) Multiple Studies 04/23/2015 69200 EKG Tracing & Interpretation Completed 03/24/2015 30748 ECHO Transthoracic, Real-Time 2D With Doppler Completed And Color Flow 08/07/2014 Diabetic Retinal Eye Exam Completed 06/30/2014 Colonoscopy Completed 05/14/2014 Mammogram Completed 10/13/2013 Bone Mineral Density Test Completed 07/23/2013 Diabetic Retinal Eye Exam Completed 05/13/2013 Mammogram Completed 07/06/2012 Diabetic Retinal Eye Exam Completed 09/24/2008 Colonoscopy Completed 5 yr f/u Encounters Type Date Location Provider CPT E/M Dx [facility], 13684 E08.9 10:[facility]a [facility] [place] J45.40 K21.9 M19.90 Office Visit 01/28/2018 10:25a [facility] [place] [address] E08.9 Hospitalists J45.40 K21.9 M19.90 Office Visit 10/18/2016 8:45a [facility] Delroy Holt, 37755 I42.9 Cora Barrios R60.9 R55 Office Visit 09/28/2015 7:40a [facility] Miah Crystal, 36515 E11.9 - Donta Barrios,FACP R60.9 Office Visit 06/04/2015 11:00a [facility] Delroy Holt, 73361 794.39 Cora Barrios Office Visit 04/23/2015 8:45a [facility] Delroy Holt, 45991 794.39 Cora Barrios 782.3 Office Visit 04/08/2015 8:30a [facility] Miah Crystal, 74581 425.9 - Elidia Sorto M.D.,FACP 250.00 V76.10 Office Visit 03/18/2015 8:30a [facility] Miah SaldivarAlena Oaklyn, 14637 782.3 - [place] Macario Barrios,FACP 250.00 Office Visit 07/13/2014 11:10a [facility] Miah SaldivarAlena [place], 62282 785.6 - Donta Barrios,FACP V76.19 v03.82 Office Visit 04/09/2014 8:30a [facility] Isamar Zambrano, N.P. 80254 250.00 - Adrian V76.19 272.4 Office Visit 10/10/2013 8:30a [facility] Isamardevyn Zambrano, N.P. 89645 V82.81 - Adrian 250.00 v05.3 Office Visit 04/02/2013 8:30a [facility] Miah SaldivarAlena [place], 33562 V70.0 - Donta Barrios,FACP 250.00 272.4 346.10 V76.10 Office Visit 02/28/2013 9:20a [facility] Benson Bear, 18017 916.4 - Donta Barrios Office Visit 10/17/2012 10:30a [facility] Imah Nicole Crystal, 81452 250.00 - Donta Barrios,FACP 715.16 346.10 Plan of Care Future Appointment(s):02/06/2018 9:45 am - MANN Reyes at [facility].02/06/2018 9:45 am - Andres James MD at [facility].02/05/2018 - Andres James, MDM97.11xD Periprosth fracture around internal prosth r knee jt, subsNew Medication:Cephalexin 500 mgFollow up:Follow up: tomorrow for ORIFS82.221D Displ transverse fx shaft of r tibia, 8txQE06.421D Displ transverse fx shaft of r fibula, 7thD
--- OUTSIDE RECORDS SUMMARY | 2018-02-08 08:07 | XMS REPORT ---
:1950 External Reference #:[id number] Author Organization [facility] Address [address] [address] Phone [phone] Care Team Providers Name Role Phone Lokesh Liu MD Primary Care Physician Unavailable Payers Type Date Identification Numbers Payment Provider Subscriber Medicare Primary Policy Number: [id number] Medicare Trinidad Macias PayID: [id number] [address] [place] [address] Medigap Part B Effective: 2012 Policy Number: BS Facets Jack Macias [id number] PayID: [id number] [address] [address] [place] [address] Problems Date Description Provider Status Onset: 10/17/2012 [...] Active Misc 200un use as [facility] its directed Nicole Crystal, Or as M.D.,FACP [...] 24HR s every DAlena Crystal, - evening M.D.,[facility] 02/04 Nifedipine ER 09/23 Hx Tablets ER 60mg 90tab 1 by mouth Miah Osmotic Release 24HR s every DAlena Crystal, - evening M.D.,[facility] 09/23 Fioricet 09/13 Hx Capsules 50-300-40 24cap take 1 by Miah mg s mouth q4 DAlena Crystal, - as needed M.D.,[facility] 02/04 MDD 3 Calcium + D 04/23 Hx Tablets 60tab daily Skyler s Nicole Holt, - M.D. 02/04 Nifedipine ER 03/18 Hx Tablets ER 60mg 90tab 1 by mouth Miah Osmotic 24HR s every DAlena Crystal, - evening M.D.,[facility] 09/23 Furosemide 03/18 Hx Tablets 20mg 20tab 1 by mouth R60.9 s every day Nicole Crystal, - as needed M.Nicole,[facility] 02/04 (pt not used since 04/2015) Chlorthalidone 03/06 Hx Tablets 25mg 30tab 1/ to s tab by Ordering - mouth Provider 03/18 every day /2014 Ranitidine HCL 02/24 Hx Tablets 300mg 90tab by mouth s every day Nicole Crystal, - (pt takes M.DAlena,[facility] 02/04 as needed) /2017 Omeprazole 02/[address] 20mg 30cap 1 by mouth s every day Jatinder Alicea M.D.,[facility] 02/24 Calcium 1200 10/14 Hx Chewtabs 5088-8545 90uni 1 po qd Isamar mg-Unit ts Juan Manuel, - N.P. 04/22 Vitamin D3 High 10/14 Hx Capsules 1000Unit 1 po qd Isamar Juan Manuel, - N.P. 04/22 Fish Oil 04/02 Hx Capsules 1000mg 1 po bid Jatinder Alicea M.D.,[facility] 10/10 Nifedipine ER 10/17 Hx Tablets ER 60mg 180ta 1 by mouth 24HR bs twice a Nicole Crystal, - day Sophie,[facility] 03/[address] 40mg 90cap 1 po qd s Jatinder Alicea M.D.,[facility] 10/10 Nabumetone Hx Tablets 500mg 180ta 1 po bid bs Jatinder Alicea M.D.,[facility] 04/09 Nifediac cc Hx Tablets ER 60mg [...] 2 Capsules Nicole Crystal, - AT Bedtime [facility] 02/04 (pt not used in 3 years) Zantac Hx Tablets 150mg 60tab 1 by mouth Isamar /0000 s twice a Juan Manuel, - day as N.P. 02/23 Fioricet Hx Tablets 50-325-40 24tab take 1 by Miah /0000 mg s mouth q4 Nicole Crystal, - as needed Yandel.DAlena,[facility] 09/13 migraine MDD 3 Meloxicam Hx Tablets [...] Lot # [id number] Given 06/25/2015 Afluria Vaccine 88533 Given 07/13/2014 Pneumococcal Conjugate Vaccine 13 Valent For [id number] Intramuscular Use 45368 Given 07/03/2014 Influenza Virus Vaccine, Quadrivalent, Split, [id number] Preservative Free 72270 Given 10/10/2013 Hepatitis B Vaccine Adult Dosage [id number] 34165 Given 07/03/2013 Zoster (Zostavax) [id number] 62747 Given 07/03/2013 Flu Vaccine Split Virus Preservative Free For [id number] Indiv 3Yr Older 26345 Given 09/24/2007 Pneumonia Vaccine 99981 Given 09/24/2007 Tdap - Tetanus/Diptheria/Acellular Pertussis Vital [...] 128.4 High Less Than 100 23 1 [employer] Crabber: [id number] 2 >100 to <200 pg/mL: likely compensated congestive heart failure (CHF) 200 to 400 pg/mL: likely moderate CHF >400 pg/mL: likely moderate to severe CHF 3 FASTING 4 Therapeutic target for the treatment of diabetes Mellitus patients is <7% HBA1C, and in selective patients <6.0%.Please refer to [place] [employer] Diabetic care guidelines for further [...] and in selective patients <6.0%.Please refer to [place] [employer] Diabetic care guidelines for further [...] Date CPT Code Description Status Comment 10/09/2017 40438 Pulmonary Function><Bronchodil Completed 10/19/2016 11763 ECHO Transthoracic, Real-Time 2D With Doppler Completed And Color Flow 10/18/2016 16757 EKG Tracing & Interpretation Completed 08/23/2015 Diabetic Retinal Eye Exam Completed 05/06/2015 02878 Stress Test Completed 05/06/2015 89534 Myocardial Perfusion Imaging Tomographic Completed (Spect) Multiple Studies 05/06/2015 57221 Myocardial Perfusion Imaging Tomographic Completed (Spect) Multiple Studies 04/23/2015 93413 EKG Tracing & Interpretation Completed 03/24/2015 16094 ECHO Transthoracic, Real-Time 2D With Doppler Completed And Color Flow 08/07/2014 Diabetic Retinal Eye Exam Completed 06/30/2014 Colonoscopy Completed 05/14/2014 Mammogram Completed 10/13/2013 Bone Mineral Density Test Completed 07/23/2013 Diabetic Retinal Eye Exam Completed 05/13/2013 Mammogram Completed 07/06/2012 Diabetic Retinal Eye Exam Completed 09/24/2008 Colonoscopy Completed 5 yr f/u Encounters Type Date Location Provider CPT E/M Dx [facility] [place] [address] E08.9 10:[facility] [place] J45.40 K21.9 M19.90 Office Visit 01/28/2018 10:25a [facility] Assjamie,[place] [address] E08.9 Hospitalists J45.40 K21.9 M19.90 Office Visit 10/18/2016 8:45a [facility] Delroy Holt, 15015 I42.9 Cora Barrios R60.9 R55 Office Visit 09/28/2015 7:40a [facility] Miah Crystal, [address]195 E11.9 - Donta Barrios,FACP R60.9 Office Visit 06/04/2015 11:00a [facility] Delroy Holt, 52828 794.39 Cora Barrios Office Visit 04/23/2015 8:45a [facility] Delroy Holt, 93666 794.39 Cora Barrios 782.3 Office Visit 04/08/2015 8:30a [facility] Miah Crystal, [address]10[address] 425.9 - Elidia Sorto M.D.,FACP 250.00 V76.10 Office Visit 03/18/2015 8:30a [facility] Miah SaldivarAlena [place], [address] 782.3 - [place] Macario Barrios,FACP 250.00 Office Visit 07/13/2014 11:10a [facility] Miah SaldivarAlena [place], [address] 785.6 - Donta Barrios,FACP V76.19 v03.82 Office Visit 04/09/2014 8:30a [facility] Isamar Zambrano, N.P. [address]896 250.00 - [place] V76.19 272.4 Office Visit 10/10/2013 8:30a [facility] Isamardevyn Zambrano, N.P. 78420 V82.81 - [place] 250.00 v05.3 Office Visit 04/02/2013 8:30a [facility] Miah SaldivarAlena [place], [address] V70.0 - Donta Barrios,FACP 250.00 272.4 346.10 V76.10 Office Visit 02/28/2013 9:20a [facility] [place] Bear, [address] 916.4 - Donta Barrios Office Visit 10/17/2012 10:30a [facility] Miah Nicole Crystal, 434[address] 250.00 - Donta Barrios,FACP 715.16 346.10 Plan of Care Future Appointment(s):02/06/2018 9:45 am - MANN Reyes at [facility].02/06/2018 9:45 am - Andres James MD at [facility].02/05/2018 - Andres James, MDM97.11xD Periprosth fracture around internal prosth r knee jt, subsNew Medication:Cephalexin 500 mgFollow up:Follow up: tomorrow for ORIFS82.221D Displ transverse fx shaft of r tibia, 0cqFO36.421D Displ transverse fx shaft of r fibula, 7thD
[2018-02-08] MEDS ORDERED: Ondansetron ODT TAB* 4 MG PO ONE (08:29)
[2018-02-08] MEDS ORDERED: Famotidine TAB* 20 MG ONE (08:43)
[2018-02-08] MEDS ORDERED: Buffered Lidocaine 0.9% SYRIN* 5 ML/SYR SYRINGE ONE (08:43)
[2018-02-08] MEDS ORDERED: Dexamethasone IV* 4 MG/ML 1 ML (4 MG) ONE (08:43)
[2018-02-08] MEDS ORDERED: ceFAZolin 2 GM PREMIX (*) 2 GM/50 ML BAG IVPB ONE (08:43)
[2018-02-08] MEDS ORDERED: Ondansetron ODT TAB* 4 MG ONE (08:43)
[2018-02-08] MEDS ORDERED: Levalbuterol 0.63MG/3ML NEB* UNIT OF USE INH ONE ×2 (10:04→10:05)
[2018-02-08] MEDS ORDERED: fentaNYL* 50 MCG/ML 5 ML VIAL (250 MCG VIAL) ONE (10:13)
[2018-02-08] MEDS ORDERED: Propofol* 10 MG/ML 20 ML BTL IV PUSH ONE (10:14)
[2018-02-08] MEDS ORDERED: Midazolam* 1 MG/ML 5 ML VIAL (5 MG) ONE (10:14)
[2018-02-08] MEDS ORDERED: Atracurium* 10 MG/ML 10 ML VIAL ONE (10:14)
[2018-02-08] MEDS ORDERED: Lidocaine 2% PF * 5 ML VIAL ONE (10:14)
[2018-02-08] MEDS ORDERED: Ketorolac INJ* 30 MG/ML 1 ML VIAL ONE (10:14)
[2018-02-08] MEDS ORDERED: EPINEPHRINE 1 MG/ML 1 ML VIAL ONE (10:15)
[2018-02-08] MEDS ORDERED: Bupivacaine 0.5% PF 10 ML VIAL INJ ONE (10:15)
[2018-02-08] MEDS ORDERED: fentaNYL* 50 MCG/ML 2 ML VIAL (100 MCG VIAL) ONE ×6 (11:04→15:38)
[2018-02-08] MEDS ORDERED: Lidocaine 1% MPF wEPI 200,000* 30 ML SDV ONE (11:18)
[2018-02-08] MEDS ORDERED: Naloxone* 0.4 MG/ML 1 ML VIAL IV PRN (11:24)
[2018-02-08] MEDS ORDERED: Ondansetron ODT TAB* 4 MG PO PRN (11:24)
[2018-02-08] MEDS ORDERED: DiMENhydriNATE IV* 50 MG/ML VIAL IV PUSH PRN (11:24)
[2018-02-08] MEDS ORDERED: Metoprolol Tartrate IV* 1 MG/ML 5 ML VIAL ONE (11:35)
[2018-02-08] MEDS ORDERED: oxyCODONE/Acetamin 5/325 MG* TAB PO PRN (14:18)
[2018-02-08] MEDS ORDERED: Magnesium Hydroxide LIQ* 30 ML UDC PO PRN (14:18)
[2018-02-08] MEDS ORDERED: Morphine INJ* 2 MG/ML 1 ML CARPUJECT IV PRN (14:18)
[2018-02-08] MEDS ORDERED: diPHENhydraMINE IV* 50 MG/ML 1 ml VIAL (BENADRYL) IV PRN (14:18)
[2018-02-08] MEDS ORDERED: Ondansetron INJ* 2 MG/ML VIAL IV PRN (14:18)
[2018-02-08] MEDS: fentaNYL* 50 MCG/ML 2 ML VIAL (100 MCG VIAL) IV PRN ×5 (14:24→15:38)
--- NOTE | 2018-02-08 14:41 | RAD ---
CPT II Codes: G9500 INDICATION: Proximal tibial fracture. Fluoroscopic services provided for referring physician. 13 spot images demonstrates internal fixation of a fracture of the proximal tibia with a plate and screws. IMPRESSION: Internal fixation proximal tibia and fibular fracture.
[2018-02-08] MEDS ORDERED: HYDROmorphone INJ* 2 MG/ML CARPUJECT SYRINGE ONE (14:54)
[2018-02-08] MEDS: HYDROmorphone INJ* 1 MG/ML CARPUJECT SYRINGE IV PRN ×5 (15:04→15:24)
[2018-02-08] MEDS ORDERED: Cyclobenzaprine TAB* 10 MG ONE (16:28)
[2018-02-08] MEDS ORDERED: oxyCODONE/Acetamin 5/325 MG* TAB ONE (16:29)
[2018-02-08] MEDS: Cyclobenzaprine TAB* 10 MG PO PRN (16:31)
[2018-02-08] MEDS: oxyCODONE/Acetamin 5/325 MG* TAB PO PRN ×2 (16:31→21:08)
[2018-02-08] MEDS ORDERED: Morphine VIAL* 4 MG/ML VIAL (1 ml vial) IV ONE (17:33)
[2018-02-08] MEDS: ceFAZolin 1 GM in Dextrose (*) 1 GM/50 ML BAG IVPB SCH (19:25)
[2018-02-08] MEDS ORDERED: Dextrose 50% Syringe 50 ML* 25 GM/50 ML SYRINGE IV PUSH PRN (20:51)
[2018-02-08] MEDS: Docusate CAP* 100 MG PO SCH (21:08)
[2018-02-08] MEDS: Magnesium Hydroxide LIQ* 30 ML UDC PO SCH (21:09)
[2018-02-08] MEDS: Insulin LISPRO* 1 UNITS UNIT SUBCUT SCH (21:15)
[2018-02-09] MEDS: Cyclobenzaprine TAB* 10 MG PO PRN ×2 (00:30→07:30)
[2018-02-09] MEDS: oxyCODONE TAB* 5 MG TAB PO PRN ×3 (00:33→12:00)
[2018-02-09] MEDS: ceFAZolin 1 GM in Dextrose (*) 1 GM/50 ML BAG IVPB SCH ×2 (02:13→11:15)
[2018-02-09] MEDS: oxyCODONE/Acetamin 5/325 MG* TAB PO PRN ×3 (03:45→14:34)
[2018-02-09 05:55] LABS: Hematocrit 26 % (35-47); Hemoglobin 8.7 g/dl (12.0-16.0)
[2018-02-09] MEDS: Docusate CAP* 100 MG PO SCH (07:29)
[2018-02-09] MEDS: Magnesium Hydroxide LIQ* 30 ML UDC PO SCH (07:31)
[2018-02-09] MEDS: Insulin LISPRO* 1 UNITS UNIT SUBCUT SCH ×2 (08:26→13:04)
[2018-02-09] MEDS ORDERED: Enoxaparin(*) 40 MG/0.4 ML SYR SUBCUT SCH (09:00)
[2018-02-09] MEDS ORDERED: Vitamin THERAPEUTIC TAB PO SCH (09:00)
--- NOTE | 2018-02-09 10:10 | PN ---
Progress Note - Progress Note Date of Service: 02/09/18 SOAP: Subjective: Pain present, but decreased. Complains of ankle pain, which she also described yesterday afternoon when I visited her on the floor post-op. Patient wants to go home around 3pm today. She still, however, describes needing pain meds every 2 hours. Patient has been taking Percocet 5/325 and Oxycodone 10mg for pain per records. Objective: RLE: - Dressing c/d/i - NVID - Dressing was lifted up and ankle examined. No soft tissue swelling, no tenderness to palpation medial or lateral malleolus. - Mild TTP just proximal to the ankle at the former site of distal ex-fix pins Selected Entries 02/08/18 02/09/18 02/09/18 22:24 00:14 03:28 Temperature 98.9 F 99.1 F 97.9 F Pulse Rate Respiratory Rate Blood Pressure (mmHg) O2 Sat by Pulse Oximetry 02/09/18 07:20 Temperature 98.2 F Pulse Rate 100 Respiratory 16 Rate Blood Pressure 117/69 (mmHg) O2 Sat by Pulse 97 Oximetry Laboratory Tests 02/08/18 02/09/18 02/09/18 21:06 04:57 08:21 Hgb 8.7 L Hct 26 L POC Glucose (mg/dL) 293 H 135 H PATO drain: 140cc postop, but only 20cc from 10pm to 5am, over 7 hours. Only minimal present now from the last 5+ hours. Assessment: POD 1 ORIF R proximal tibia/fibula periprosthetic fracture Plan: - PT, OOB, ROM and strengthening R knee to tolerance - Lovenox 40 daily - We will pull PATO drain today - Dispo planning- patient may be discharged home with services when she is safe. Can be discharged today if is thought to be safe to return home/ - Pain control - Follow up with me ~ 14 days postop in clinic - Continue Ancef 1gm IV q 8 hours until discharge or for 48 hours postop- whichever comes sooner - Dressing instructions will be included in home care instructions. Patient should change dressing on POD 3. At that point incision can get wet, but not submerged in water. Change dressing once daily and keep it in place until at least POD 7.
--- NOTE | 2018-02-09 10:12 | PN ---
Progress Note - Progress Note Date of Service: 02/09/18 SOAP: Subjective: [Pt was seen sitting up in bed this am. She states that she is doing well. Slept through the night with minimal interruptions. She feels pain is well controlled with percocet. Denies any SOB, Chest pain, nausea or vomiting. ] Objective: [General: A&O, NAD MSK, RLE: Dressing is c/d/i. Drain has minimal drainage in it. +df/pf. 2+DP pulse, sensation intact distally ] Vital Signs Temp 98.2 F 02/09/18 07:20 Pulse 100 02/09/18 07:20 Resp 16 02/09/18 07:30 BP 117/69 02/09/18 07:20 Pulse Ox 97 02/09/18 07:20 Intake & Output 02/08/18 02/09/18 02/09/18 18:59 06:59 18:59 Intake Total 1780 1904 480 Output Total 660 1180 650 Balance 1120 724 -170 Weight 207 lb Intake: IV Fluids 1750 986 LR 1700 986 NS 50ML, Cefazolin 2G 50 IVPB 118 ABX - CEFAZOLIN 118 Oral 30 800 480 Output: PATO #1 60 80 Urine 600 1100 650 Other: Date of Last Bowel 02/09/18 Movement # Bowel Movements 1 Estimated Stool Amount Small Assessment: [POD 1 right tibial shaft ORIF ] Plan: [ - D/C home today after PT. - Continue with pain medication at home - continue with 1 more day of abx at home ]
[2018-02-09 14:13] VITALS: BP 121/51
--- NOTE | 2018-02-11 00:15 | OP ---
OPERATIVE REPORT: ADDENDUM: Removal of external fixator, large, knee spanning, right lower extremity. [id number]/[facility] #: [id number] MTDD
--- NOTE | 2018-02-11 01:53 | OP ---
DATE OF OPERATION: 02/08/18 - ROOM #335 DATE OF : 54. SURGEON: Andres James M.D. GAS ENGINE OPERATOR: MANN Licea. A physician teaching assistant was required for the length of the procedure for assistance with the patient's positioning, retraction, instrumentation, and closure. ANESTHESIOLOGIST: Dr. Chad Jean. ANESTHESIA: General anesthesia. PRE-OP DIAGNOSES: 1. Right proximal tibia and fibula shaft fractures, periprosthetic. 2. Status post external fixator placement, knee spanning, 01/28/18. POST-OP DIAGNOSES: 1. Right proximal tibia and fibula shaft fractures, periprosthetic. 2. Status post external fixator placement, knee spanning, 01/28/18. OPERATIVE PROCEDURE: 1. Open reduction and internal fixation, right proximal tibia shaft and tibial plateau fracture with plating, two plates, periprosthetic. 2. Removal of external fixator, large, knee spanning, right lower extremity. ANTIBIOTICS: Ancef 2 g IV. IV FLUIDS: 1700 mL crystalloid. SPECIMEN: None. IMPLANTS: Synthes lateral tibial plateau plate, long, titanium with mostly locking screws, but also a non-locking screw. Also, a Synthes 6-hole LCP plate, made of titanium, with all locking 3.5 mm screws. The lateral tibial plateau plate had all 3.5 mm screws through it. TOURNIQUET TIME: 120 minutes at 300 mmHg. [id number]-[id number] TIME: 161 minutes. RADIATION USE: Large C-arm used, 36.5 seconds. RADIATION EXPOSURE: 0.75519 mGy meter squared. COMPLICATIONS: None. ESTIMATED BLOOD LOSS: Less than 200 mL. INDICATIONS FOR PROCEDURE: The patient is a 67-year-old woman with a history of multiple prior right knee surgeries culminating in a right total knee arthroplasty performed in 2010 at [facility] by Dr. Tolbert. At baseline, the patient has no right knee pain and likes to go for a long walks with her , who has congestive heart failure. On the date of injury, 01/28/18, the patient was at home. Her two large dogs bumped into her right lower extremity and she fell to the ground. There was pain, swelling, and deformity of the right lower leg. I met the patient back same day in the emergency department. She already had significant soft tissue swelling and ecchymosis about the right lower leg, which precluded open reduction and internal fixation surgery that same day. For that reason, to minimize swelling, minimize pain, and allow for the earliest possible definitive surgical intervention, I performed in external fixator placement in the operating room. That was uncomplicated. That was knee spanning. Two pins in the distal femur and two pins in the distal tibia. It was a very stable construct. I reduced the fracture as best as I could before locking completely the external fixator. The pins were placed especially proximal to the knee joint and especially distal to the planned location of the tibial plate, to take extra caution about preventing infection given the patient's presence of a total knee arthroplasty. The patient stayed in the hospital several days and then returned home where she had a hospital bed. She was anticoagulated with Lovenox and was treating her pain with Percocet and muscle spasm with Flexeril. I saw the patient in the office on 02/06/18 and noted some erythema around all four pin sites. It was almost a perfectly circular redness of the skin about each limb of the pins. There was also not blistering, but the appearance of irritation of the skin similar to that seen just before blistering occurs. There was some very trace weeping of the skin noted too. These all corresponded with a diagnosis of a skin allergic reaction to the patient's stainless field pins, that were in place as part of the external fixator. None of the wounds had drainage. There was only minimal tenderness to palpation if any about the skin sites of that reddened skin. I made the diagnosis of allergic reaction to the pins. I told the patient to take Benadryl 25 mg p.o. q.6 hours. Just in case to come into prevent infection , I started the patient on Keflex 500 mg p.o. t.i.d. as well. I had called the implant strike operations officer and we obtained a titanium plates rather than stainless steel plates for this procedure due to the patient's allergic reaction. I had also contacted the maker of the patient's total knee arthroplasty, Chu. I was told that the Chu knee implant consisted of cobalt chrome, titanium, and nickel. I thought that there would be the least possibility of the galvanic corrosion reaction if I chose a titanium rather than a stainless steel plate. Discussed with the patient's risks and potential complications of surgery including bleeding, infection, nerve or blood vessel injury, re-fracture, knee pain, stiffness, osteoarthritis, need for revision arthroplasty. The morning of the procedure, the patient held her Lovenox. DESCRIPTION OF PROCEDURE: In preoperative holding, the patient signed a surgical consent. Operative extremity was marked in preoperative holding. The patient was taken back to the operating room and placed supine on the operating table. The patient was sedated and intubated. A bone foam was placed below the right lower leg. A tourniquet was placed about the right proximal thigh. A mini time-out was performed. We then proceeded to remove the patient's external fixator. We used wrenches to remove all component parts including the stainless steel pins, four, placed through the patient's skin. None of the four pin sites had any drainage when we removed the pins. There was no sign whatsoever of an infection. We then prepped and draped the right lower extremity. The prep was done with Betadine. I actually poured Betadine into each one of the four pin sites prior to the scrub and paint to Betadine down the right lower extremity. Draping was then performed. Surgical time-out. Esmarch was applied and the tourniquet was elevated to 300 mmHg. The patient's lower leg and knee had reduced greatly and swelling compared to the prior week when the external fixator was placed. The patient's leg was still noted to be quite obese. I could palpate the patella, but I brought in the C-arm to confirm my desired surgical length. The patient had multiple prior surgical incision scars all about her knee. I used a surgical incision scar, which approximated the S-shaped incision for placement of lateral tibial plateau plate through right lateral approach to the knee. I incised through that with a skin knife and extended that distally. I changed knives and used knife and scissors to dissect down to the fascia through a very deep layer and subcutaneous fat. I identified the fascia of the anterior compartment of the lower leg. This had been torn off of the bone at and just proximal to the level of the fracture site. More distally, where it was intact, I incised it 1 cm lateral to the anterior tibial crest. I then used a Ríos to lift muscle off of the lateral aspect of the tibia shaft. I next moved proximal. I divided the iliotibial band and dissected it posterior and anterior off Gerdy's tubercle and then split it coming proximally. The capsule deep to the ITB was respected, although there were couple drops of joint fluid, so there may have been a robb in the capsule. I evaluated the fracture. I debrided it with a rongeur and a curette. I irrigated it. It is not purely transverse. There was several jagged ends on either side. It was essentially noncomminuted. We reduced the fracture manually and then placed two K-wires across it for provisional fixation. We also used a large bone clamp to help us with reduction. K-wires kept reduction relatively stable and we could proceed forward with placement of hardware. I tried two different sheets of lateral tibial plateau plates, each titanium. I believe I used the deeper bending plate, proximally. I knew that this plate would fit more distally than the standard plate because my proximal row of screws would not want to go into the thin cement mantle deep to the implant. I would also want these screws not to go into the tray of the plate or certainly the polyethylene superior to it. I chose an appropriate length plate to pass the fracture site distally by at least three to four screw holes. I found that the plate fit the bone not perfectly, but good enough. The plate was provisionally fixed with K-wires proximal and distal. C-arm was brought in and confirmed adequate reduction at fracture site and adequate plate location. I next filled the lateral plate with screws. I started by placing a nonlocking screw in the proximal row, but found, given its only being unicortical, it did not suck the plate to bone. Therefore, instead, I placed several locking screws in that proximal row. I then placed a locking screw just proximal to the fracture site. This one was bicortical. I next placed my first screw distal to the fracture line. I used a nonlocking screw and placed it eccentrically in the hole, to establish some compression at the fracture site. I was very happy with compression obtained. I next filled the remainder of the proximal row with locking screws, with all short screws, placed unicortically, abutting the cement mantle of the total knee arthroplasty. I placed a two more short-locking screws similarly unicortical. I next placed an eccentric screw, directed distal to proximal, with a nonlocking screw, just proximal to the fracture site. Therefore, proximal to the fracture site, my fixation was as follows: Six locking unicortical screws and two nonlocking bicortical screws. I thought this was sufficient to fixation proximally. I next added to the distal fixation. I placed three locking screws distally, so my total fixation distal to the fracture site consisted of one nonlocking and three locking screws, all placed bicortically. Prior to the operation I had decided, given this patient's relatively poor bone quality, as evidenced by this fracture being sustained with a fall from a standing height, that I would use two plates to treat this fracture, treating it like a type 6 tibial plateau fracture. Therefore, I had already decided preoperatively that I would likely place a plate medially or posteromedially. I considered placing this plate through the same wound and just retracting tissues far medially; this did not seem feasible. Therefore, I made a separate medial incision of the lower leg. This medial incision with at least 8 to 7 cm from the lateral lower leg incision. It was closest towards the distal end of the two incisions where they were just over 6 cm apart. Skin incision was made medially along the posteromedial border of the tibia. I dissected down through subcutaneous fat. Incised some minimal sartorius fascia in the proximal end of the incision. This medial incision was much shorter than the lateral and was centered about the fracture site. After the sartorius fascia was cut, longitudinally, the gracilis and semitendinosus tendons were visualized. These were respected and were never cut and did not have to be retracted significantly at all. I did not remove any periosteum. Fracture site was well visible. I picked a 6 - hole LCP plate. I first bent the plate, in order to increase the level of compression at the fracture site. I placed this plate with several screws and realized that it had caused a valgus angular deformity, very trace at the fracture site. Therefore, I removed the plate, straightened it out and then placed it back into the wound. I placed at anteromedially on the medial side of the tibia. I placed two locking screws, bicortically, on either side of the fracture site through the tibia. Screw placement, was somewhat limited by the presence of screws placed through the lateral plate. For that reason, I have only placed two screws on either side of the fracture through that medial plate. It should be stated especially given all this hardware being placed that a very little periosteal elevation or stripping was done during this procedure. That was limited to some periosteum pulled out the fracture site at the very start to the procedure when I was debriding the fracture site and just prior to my effecting reduction at the fracture site. Obtained final x-ray views, which showed what looked to be a perfect reduction at the fracture site and AP, lateral, and oblique views. Total knee arthroplasty hardware appeared well placed as it had preoperatively. The proximal end of the tibial plateau plate seemed off bone, but it was not off bone as much when I viewed it through the wound and the patient had much subcutaneous tissue present, I did not worry about this being overly prominent. I did diffuse irrigation of the wounds. The medial wound was closed with multiple buried simple stitches in the subcutaneous tissue with Vicryl 2-0 suture. The skin of the medial wound was then stapled. The lateral wound was closed as follows. The iliotibial band was repaired to itself with multiple sbypea-eb-pphps stitches using Vicryl 0 suture. A PATO drain, 7 mm in size was placed deep to the anterior compartment musculature. I next closed the anterior fascia from the fracture site distal with akkfku-ni-uvicx stitches using Vicryl 0 suture. Between Gerdy's tubercle and the fracture site, the anterior fascia had been damaged by the fracture itself, I found at the start of the operation. I repaired what could be done, to cover up as much of the plate as possible with fascia using simple and shhfxc-gj-lqega stitches using Vicryl 0 suture. Irrigation. Closure of the subcutaneous tissue with buried simple stitches using Vicryl 2-0 suture. Closure of the skin with abdirahman. We first fully addressed these wound closures with Xeroform, 4x4s, ABD, sterile Webril. Only after that dressing had fully been placed, we did take down the rest of the drapes, exposing the pin sites of the distal lower leg and the distal femur. We placed over those iodine-soaked 4x4s, followed by 4x4s dry, followed by ABDs and sterile Webril. DC bandage was placed from foot to proximal thigh. The patient's knee was placed in a knee immobilizer. The patient was awakened and extubated and brought to the PACU for recovery. DISPOSITION: The patient was admitted postoperatively for IV pain control, physical therapy. The patient received Percocet and Flexeril as needed for pain and muscle spasm. The patient worked with physical therapy regarding safe mobilization. The patient was made toe-touch or touchdown weightbearing right lower extremity. She is to be in a knee immobilizer when she is up and moving and when she is asleep, otherwise she can be out of the knee immobilizer. The patient will work with physical therapy on strengthening and range of motion of the right knee. The patient will continue Lovenox 40 mg subcu daily for four weeks postoperatively. She received Ancef 1 g q.8 hours until her discharge, over 24 hours postoperatively. She was to take Keflex 500 mg p.o. t.i.d. when she returned home. The patient has approximately seven days remaining of the prescription given to her preoperatively and she will take the remainder of that for infection prevention. The patient will follow up with me in two weeks postoperatively in clinic for a wound check. On postoperative day 3, the patient will change her dressing to the first time and continue to do the dressing change once daily thereafter. She will need VNS for physical therapy at home and for dressing changes if available. [id number]/CPS #: [id number] A- [id number]/CPS #: [id number] JAYSON
--- NOTE | 2018-02-12 05:48 | DS ---
AMENDED REPORT NOW INCLUDES COSIGNER DESIGNATION - ESIGNED BEFORE ADJUSTMENTS DISCHARGE SUMMARY: DATE OF ADMISSION: 02/08/18 DATE OF DISCHARGE: 02/09/18 PROVIDER: Andres James MD* (DICTATED BY MANN ROCKWELL) ADMITTING DIAGNOSIS: Right proximal tibia and fibular periprosthetic fracture. CONSULTATIONS: PT and OT. HISTORY OF PRESENT ILLNESS: The patient is a 67-year-old female, who recently had an injury resulting in a right tibia and fibular shaft fracture, periprosthetic. External fixation device was placed onto the patient one week prior. She was taken to the OR, the swelling has gone down in order to place the plate and screws on the tibial shaft. HOSPITAL COURSE: The patient was admitted to [facility] on 02/08/18 , and underwent a right tibia periprosthetic fracture open reduction and internal fixation with no complications. The patient recovered briefly in a postanesthesia care unit and was then transferred to short-stay surgical unit in stable condition. On postop day #1, the dressing was clean, dry, and intact in the right lower extremity and was neurovascularly intact. She could demonstrate dorsiflexion and plantarflexion with good strength. She will be worked on range of motion with Physical Therapy and was instructed on toe-touch weightbearing. Pain was well controlled with Percocet 5/325. The patient's pain was well controlled and found stable for discharge. Vital signs were stable throughout the hospital course. DISCHARGE CONDITION: Good. DISCHARGE MEDICATIONS: 1. Percocet 5/325. 2. Lovenox 40 mg. HOME MEDICATIONS: 1. Acetaminophen 325 mg. 2. Aspirin 81 mg daily. 3. Calcium carbonate/vitamin D3. 4. Keflex 500 mg. 5. Cyclobenzaprine 10 mg. 6. Diclofenac sodium 25 mg. 7. Glucosamine one cap. 8. Lovastatin. 9. Metformin 500 mg. 10. Montelukast sodium. 11. Procardia XL. 12. Rabeprazole. 13. Nasacort nasal spray. DISCHARGE INSTRUCTIONS: 1. Weightbearing status: Toe-touch weightbearing. 2. Wound care: Okay to shower 3 days after surgery. No bathing, swimming or submerging the wound. Use gentle soaps, pat dry. Cover with gauze and Joe wrap. Call orthopedic office for increased redness, increased pain or fever. Go to the ER for shortness of breath, palpations or chest pain. 3. Diet: Regular diet. Increase fluids and fiber to prevent constipation. Continue to use stool softeners, call the office if no bowel motions in the next 48 hours. 4. Continue physical therapy and occupational therapy. 5. Outpatient physical therapy as soon as possible. 6. DVT prophylaxis, Lovenox subcutaneously daily for four weeks after fractures. 7. Continue with home antibiotics. 8. Follow up with Dr. James within two weeks. Call for an appointment. Renee will be removed at this point. MANN ROCKWELL [id number]/CPS #: [id number] MTDD
== END 2018-02-09 15:09 | disposition home health service (06) | DRG 494 ==
LOC: AA 02-08 07:59 → SSU 02-08 16:37
PROVIDERS: ADMIT Orthopaedic Surgery; ATTEND Orthopaedic Surgery
PROC: 0QPGX5Z Removal of External Fixation Device from Right Tibia, External Approach (ICD-10-PCS; 2018-02-08)
PROC: 0QSG04Z Reposition Right Tibia with Internal Fixation Device, Open Approach (ICD-10-PCS; principal; 2018-02-08 09:45)
DX: M97.11XA Periprosthetic fracture around internal prosthetic right knee joint, initial encounter (principal); J45.909 Unspecified asthma, uncomplicated; G43.909 Migraine, unspecified, not intractable, without status migrainosus; K21.0 Gastro-esophageal reflux disease with esophagitis; D72.1 Eosinophilia; Z96.653 Presence of artificial knee joint, bilateral; L53.8 Other specified erythematous conditions; T78.49XA Other allergy, initial encounter; X58.XXXA Exposure to other specified factors, initial encounter; E11.9 Type 2 diabetes mellitus without complications; Z79.84 Long term (current) use of oral hypoglycemic drugs; Z79.82 Long term (current) use of aspirin; Z79.899 Other long term (current) drug therapy
CPT/HCPCS: 36415; 76001; 85014; 85018; 88300; A9270-GY; C1713; C1776; G8978-GP-CL; G8979-GP-CI; J0690; J1100; J1170; J1650; J1885; J2001; J2250; J2270; J2704; J3010; J3490

== ENCOUNTER 2018-04-27 07:18 | Emergency (ER) | payer MEDICARE, BC ==
[2018-04-27 07:35] VITALS: BP 133/78
--- NOTE | 2018-04-27 07:42 | UC ---
General HPI - HPI Summary HPI Summary: This is scribe Rosalie Peterson documenting for attending Benson Mondragon M.D. Patient is a 67 y/o F who presents to [facility] due to a malfunctioning Wound Vac. She suffered a right tib/fib fracture on January 28 (almost 3 months ago) after which she had surgery on February 08. The Wound Vac was placed by the wound clinic on (2 days ago) when she was there for a wound check. The unit has been reporting an error message of low pressure or blockage per patient since last night. Denies fever, chills. She is not on Abx - reports she has been on 7 courses of Abx since January 28, but has been off them for 2 weeks. - History of Current Complaint Chief Complaint: CLARYkin Stated Complaint: WOUND CHECK Time Seen by Provider: 04/27/18 07:23 Hx Obtained From: Patient Onset/Duration: Still Present Current Severity: None Pain Intensity: 0 Pain Location at: Negative Aggravating: Nothing Alleviating: Nothing Associated Signs & Symptoms: Positive: Other - Malfunctioning Wound Vac - Allergy/Home Medications Allergies/Adverse Reactions: Allergies Allergy/AdvReac Type Severity Reaction Status Date / Time No Known Drug Allergies Allergy See Comment Verified 04/27/18 07:29 evvironmental Allergy asthma Uncoded 04/27/18 07:29 symptoms Home Medications: Home Medications Levalbuterol HFA INHALER* [Xopenex Hfa Inhaler*] 2 puff INH QID PRN 04/27/18 [ History Confirmed 04/27/18] PMH/Surg Hx/FS Hx/Imm Hx Endocrine History: Diabetes Respiratory History: Asthma Other History Of: Negative For: Anticoagulant Therapy - Surgical History Surgical History: Yes Surgery Procedure, Year, and Place: right knee replace - 2010. appe, tonsillectomy, tubal ligation. cataracts bilat, several arthroscopic surgeries of right knee prior to replacement - Family History Known Family History: Positive: Cardiac Disease - Social History Occupation: Retired Lives: With Family Alcohol Use: None Substance Use Type: None Smoking Status (MU): Never Smoked Tobacco Type: Cigarettes Have You Smoked in the Last Year: No - Immunization History Most Recent Influenza Vaccination: 06/2017 Most Recent Pneumonia Vaccination: 06/2014 Review of Systems Constitutional: Other - Malfunctioning wound vac on RLE Skin: Negative Eyes: Negative ENT: Negative Respiratory: Negative Cardiovascular: Negative Gastrointestinal: Negative Genitourinary: Negative Motor: Negative Neurovascular: Negative Musculoskeletal: Negative Neurological: Negative Psychological: Negative All Other Systems Reviewed And Are Negative: Yes - Comments Additional Review of Systems Comments: NEGATIVE: Fever, chills Physical Exam - Summary Physical Exam Summary: VITAL SIGNS: Reviewed. GENERAL: Patient is a well-developed and nourished female who is lying comfortable in the stretcher. Patient is not in any acute respiratory distress. HEAD AND FACE: Normocephalic EYES: PERRLA, EOMI x 2. EARS: Hearing grossly intact. MOUTH: Oropharynx within normal limits. NECK: Supple, trachea is midline, no adenopathy, no JVD, no carotid bruit. CHEST: Symmetric, no tenderness at palpation LUNGS: Clear to auscultation bilaterally. No wheezing or crackles. CVS: Regular rate and rhythm, S1 and S2 present, no murmurs or gallops appreciated. ABDOMEN: Soft, non-tender. Bowel sounds are normal. No abdominal abnormal pulsations. EXTREMITIES: Full ROM in all major joints, no edema, no cyanosis or clubbing. She has a wound vac on the right lower leg with a blockage message, but there is no erythema, no swelling. She is in no pain. NEURO: Alert and oriented x 3. No acute neurological deficits. Speech is normal and follows commands. SKIN: Dry and warm Triage Information Reviewed: Yes Vital Signs: Initial Vital Signs Temp 98.8 F 04/27/18 07:24 Pulse 92 04/27/18 07:24 Resp 16 04/27/18 07:24 BP 133/78 04/27/18 07:24 Pulse Ox 96 04/27/18 07:24 Vital Signs Reviewed: Yes Course/Dx - Course Course Of Treatment: The patient was found to have increased BP in UC. The patient will follow up with PCP for better control of BP. Patient is a 67-year- old female who presents to the urgent care for replacement of the wound back. It appears that her warm pack is clotted. Wound back was successively replaced another patient is discharged with follow-up with the wound clinic on Sunday. No complications. - Differential Dx - Multi-Symptom Provider Diagnoses: Wound back tubing replacement Discharge - Sign-Out/Discharge Documenting (check all that apply): Patient Departure - Discharge - Discharge Plan Condition: Stable Disposition: HOME Patient Education Materials: Negative Pressure Wound Therapy (DC) Referrals: Lokesh Liu MD [Primary Care Provider] - 3 Days Additional Instructions: RETURN TO ED OR URGENT CARE FOR ANY NEW OR WORSENING SYMPTOMS. - Billing Disposition and Condition Condition: STABLE Disposition: Home
== END 2018-04-27 08:05 | disposition home or self-care (01) ==
LOC: UCEAST 07:18
DX: T88.8XXA Other specified complications of surgical and medical care, not elsewhere classified, initial encounter (principal); J45.909 Unspecified asthma, uncomplicated; Z96.651 Presence of right artificial knee joint; Z82.49 Family history of ischemic heart disease and other diseases of the circulatory system
CPT/HCPCS: 99212; G0463